=== PATIENT | male | born 1930 | race Caucasian/White ===

== ENCOUNTER 2018-03-22 08:33 | Outpatient (CLI) | payer MEDICARE, BC ==
[2018-03-22 10:30] LABS: Hemoglobin 14.9 g/dL (14.0-18.0); Mean Corpuscular HGB CONC 31.7 g/dL (32.0-36.0); Mean Corpuscular Hemoglobin 29.6 pg (27.0-31.0); Mean Corpuscular Volume 93.3 fL (78.0-98.0); Mean Platelet Volume 9.2 fL (7.4-10.4); Platelet Count 198 thou/uL (130-400); RBC Distribution Width 14.6 % (11.5-14.5); Red Blood Cell (RBC) Count 5.03 mill/uL (4.70-6.10); White Blood Cell (WBC) Count 6.2 thou/uL (4.8-10.8)
[2018-03-22 10:32] LABS: Bilirubin Negative (Negative); Blood, Urine Negative (Negative); Clarity CLEAR (Clear); Glucose, Urine (Dipstick) Negative (Negative); Leukocyte Trace (Negative); Nitrite Negative (Negative); Protein, Urine (Dipstick) Negative (Neg-Trace); Specific Gravity, Urine 1.008 (1.002-1.036); Urobilinogen 0.2 mg/dL (0.2-1.0); pH, Urine 5.5 (5.0-9.0)
[2018-03-22 10:36] LABS: INR-International Normal Ratio 2.2; PTT 43.1 SEC (22.9-36.1); Prothrombin Time 24.8 SEC (12.0-14.7)
[2018-03-22 10:41] LABS: Bacteria/HPF None Seen HPF (None Seen); Hyaline Casts/LPF 0-3 HYALINE CAST LPF (0-3 Hyaline); RBC/HPF 0-3 HPF (0-3); Squamous Epithelial None Seen HPF (0-3); WBC/HPF 0-3 HPF (0-3)
[2018-03-22 10:53] LABS: Anion Gap 12 mmol/L (10-20); BUN (Urea Nitrogen) 28 mg/dL (8.4-25.7); Calc. Creatinine Clearance 0 mL/min (70-130); Calcium 9.5 mg/dL (7.8-10.44); Carbon Dioxide 26 mmol/L (23-31); Chloride 103 mmol/L (98-107); Estimated GFR-MDRD 54; Glucose 182 mg/dL (83-110); Potassium 4.3 mmol/L (3.5-5.1); Sodium 137 mmol/L (136-145)
== END 2018-03-22 08:34 | disposition home or self-care (01) ==
LOC: LABBT 08:33
PROVIDERS: ATTEND Urology
DX: Z01.818 Encounter for other preprocedural examination (principal); N39.41 Urge incontinence
CPT/HCPCS: 87077; 87086; 87186; 93005; 93010

== ENCOUNTER 2018-03-29 05:56 | Day surgery (SDC) | payer MEDICARE, BC ==
[2018-03-22 08:57] VITALS: BMI 24.4
[2018-03-29 06:53] LABS: INR-International Normal Ratio 1.1; PTT 32.9 SEC (22.9-36.1); Prothrombin Time 14.1 SEC (12.0-14.7)
[2018-03-29] MEDS ORDERED: Fentanyl 100 MCG/2 ML VIAL ONE (06:58)
[2018-03-29] MEDS ORDERED: Bupivacaine 0.25% HCL 30 ML VIAL ONE (06:59)
[2018-03-29] MEDS ORDERED: Neomycin-Polymyxin 1 ML AMP ONE (06:59)
[2018-03-29] MEDS ORDERED: CEFAZOLIN/Water 2 GM/20 ML SYRINGE ONE (07:38)
[2018-03-29] MEDS ORDERED: Bacitracin Zinc Ointment 30 gm TUBE ONE (08:21)
[2018-03-29] MEDS ORDERED: Succinylcholine Chloride 20 MG/ML 10 ml SYRINGE FS ONE (09:32)
[2018-03-29] MEDS ORDERED: PROPOFOL 200 MG/20 ML VIAL ONE (09:32)
[2018-03-29] MEDS ORDERED: Lidocaine 1% PF 5 ML VIAL ONE (09:32)
[2018-03-29] MEDS ORDERED: Dexamethasone 20 MG/5 ML VIAL ONE (09:32)
[2018-03-29] MEDS ORDERED: Ondansetron HCl/PF 4 MG/2 ML Vial ONE (09:32)
[2018-03-29] MEDS ORDERED: PHENYLEPHRINE-NS 100 MCG/ML 10 ML SYRINGE ONE (09:32)
--- NOTE | 2018-03-29 11:10 | OP ---
DATE OF PROCEDURE: 03/29/2018 SERVICE: Urology. SURGEON: Shay Ellison M.D. PREOPERATIVE DIAGNOSIS: Urge urinary incontinence. POSTOPERATIVE DIAGNOSIS: Urge urinary incontinence. PROCEDURE PERFORMED: InterStim stage 1. INDICATIONS FOR PROCEDURE: Mr. Schreiber is an 87-year-old white male who has severe overactive bladder with urge incontinence. He has tried Myrbetriq as well as antimuscarinics without good control of h is symptoms. He underwent Botox which controlled his overactive bladder very well, but he could not urinate properly afterwards which suggested that he had a significant under activity of his bladder. This was demonstrated on urodynamics. As such, we have elected to go for an InterStim which should correct underactive bladder and overactive bladder at the same time. Risks and benefits have been di scussed and he has agreed to proceed forward. DESCRIPTION OF PROCEDURE: After identification of arm and verification of consent, the patient was b rought back to the operating room where he underwent general anesthesia with endotracheal intubation. He was then placed in the prone position, prepped and draped in usual sterile fashion. After appro priate timeout, a spot fluoro image was taken of the sacrum. The spot of the S3 sacral nerve foramen were identified. The finder needle was used to isolate the S3 nerve roots on both sides. We had in itially better responses on the left. Therefore, the left side was initially selected. The stylet w as placed through the finder needle and the finder needle was then removed. A small incision was mad e with an 11 blade to allow for the dilation trocar to be placed over the stylet into the sacrum with confirmed placement on fluoroscopy. The stylet was removed and the quadripolar lead advanced throug h. Despite multiple attempts of attempting to reposition, the quadripolar lead within the dilator tr ocar, good responses could not be obtained and eventually we aborted this side and favored the other side. Again, the finder needles were used to find the S3 nerve root and once identified, the stylet was placed through the finder needle and the finder needle removed. The dilation trocar was then eric adwoa after a small incision was made with an 11 blade around the stylet and advanced into its correct position using fluoroscopy. The stylet was removed and the quadripolar lead was advanced on this lola e. After multiple attempts with similar difficulty, it was felt that his sacral nerve foramen were l ikely stenotic and with osteophytes resulting in difficulty in advancing the quadripolar lead, the be st responses we could get on this side was two leads #2 and #3 with excellent anal ralph and toe cu rl without any response on leads 0 and 1. Realizing this is probably the best response that he could get with good responses on leads II and III, we went ahead and left the lead in place and backed out the dilation trocar. The tunneler was then used to go adjacent from the quadripolar lead to an inci sunny that was made on the contralateral upper buttocks which were made with a 15 blade and Bovie elec trocautery to create a small pouch. The quadripolar lead was tunneled through the trocar site into t he pouch. The connection was made to the boot and temporary connector wire which was then tunneled b ack to the opposite side and externalized to the temporary IPG stimulator. The connection was made u sing a torque-limiting screwdriver and the boot secured in place with 0 silk ties. This was then eric adwoa into the pouch and this irrigated with antibiotic irrigation. The skin was closed with interrupt ed 2-0 Vicryls taking care not to injure the lead and the skin closed with a 4-0 Monocryl with Dermab ond applied. A small U stitch was placed in the small incision site over the quadripolar lead. Derm abond was applied to this as well as the previous puncture sites. The connection of the temporary wi re to the temporary IPG was then made and the connector secured underneath gauze and an Op-Site. Onc e the Dermabond was dried, the patient was flipped back over extubated and taken to PACU for recovery in stable condition. COMPLICATIONS: None. ESTIMATED BLOOD LOSS: 10 mL. RETAINED TUBES AND DRAINS: None. Implanted device is the InterStim stage I with a trial wire and quadripolar lead. DISPOSITION: The patient will be discharged home for a trial of 1 week with his InterStim. If he cassidy s good results, we will implant a permanent IPG in the next phase. Otherwise we will explain the ent faye device if he has poor response.
== END 2018-03-29 12:20 | disposition home or self-care (01) ==
LOC: SDC 05:56
PROVIDERS: ATTEND Urology
PROC: 01HY3MZ Insertion of Neurostimulator Lead into Peripheral Nerve, Percutaneous Approach (ICD-10-PCS; principal; 2018-03-29)
DX: N39.41 Urge incontinence (principal); N32.81 Overactive bladder; M25.78 Osteophyte, vertebrae; E78.5 Hyperlipidemia, unspecified; E11.9 Type 2 diabetes mellitus without complications; I50.9 Heart failure, unspecified; E07.9 Disorder of thyroid, unspecified; Z87.891 Personal history of nicotine dependence; Z79.01 Long term (current) use of anticoagulants; Z79.82 Long term (current) use of aspirin; Z79.83 Long term (current) use of bisphosphonates; Z79.84 Long term (current) use of oral hypoglycemic drugs; Z79.899 Other long term (current) drug therapy; Z95.810 Presence of automatic (implantable) cardiac defibrillator
CPT/HCPCS: 64561; 76001; 85610; 85730; C1778; 36415; J1100; J2001; J2405; J2704; J3010; S0020

== ENCOUNTER → 2018-04-05 | Day surgery (SDC) | payer MEDICARE, BC ==
[2018-04-04 11:57] VITALS: BMI 36.9
[~2018-04-05] MED LIST: Bupivacaine/Epinephrine 0.25% 30 ML VIAL ONE; CEFAZOLIN/Water 2 GM/20 ML SYRINGE ONE; Fentanyl 100 MCG/2 ML VIAL ONE; Neomycin-Polymyxin 1 ML AMP ONE; Sodium Chloride 0.9% 10 ML ONE
--- NOTE | 2018-04-05 10:31 | OP ---
DATE OF SURGERY: 04/05/2018 by Shay Ellison M.D. PREOPERATIVE DIAGNOSIS: Urge incontinence. POSTOPERATIVE DIAGNOSIS: Urge incontinence. PROCEDURE PERFORMED: InterStim phase II IPG implantation. INDICATIONS FOR PROCEDURE: Mr. Schreiber is an 87-year-old white male with severe urge incontinence janee t has been refractory to all other methods of treatment. We had performed InterStim phase I approxim ately 1 week ago and he had a very good response with over 50% improvement. He states he is hardly l eaking at all and his frequency and urgency have cut down significantly. As such, he has agreed to p roceed forward with phase II rather than removal of his InterStim leads. All risks and benefits have been discussed and he has agreed to proceed forward. DESCRIPTION OF PROCEDURE: After identification of arm and verification of consent, the patient was b rought back to the operating room, given general anesthesia with endotracheal intubation. He was eric adwoa in the prone position and prepped and draped in usual sterile fashion. After appropriate timeout , 0.25% Marcaine plain was used to infiltrate just around the incision. An Ioban was placed over the patient's incision line and an incision made over the preexisting incision with a 10 blade. The pre vious suture was cut out and removed and once the previous pouch was identified by fluid release, the tissues were elevated to avoid damage to the preexisting wires. The incision was extended using the 10 blade to the apices of both sides of the incision. The connector was then brought up out through the incision and the pouch copiously irrigated with antibiotic irrigation. The silk ties were cut u sing a 15 blade and were discarded. The boot was removed and the torque-limiting screwdriver used to unscrew the connector off of the quadripolar lead. The temporary connector was then cut and the quispe t and connector discarded. The external lead was then pulled through by the circulating nurse outsid e the patient. This incision had to be extended slightly to allow for implantation of the IPG. The IPG was brought in and the quadripolar lead wiped off and the connection made using the torque-limiti ng screwdriver. The IPG was implanted into the pouch after putting on a rifampin antibiotic coated p ouch around the IPG, which was then placed underneath the patient's skin with the IPG inside. It was seated well but the pouch had to be extended superiorly slightly in order to allow for a flat seatin g of the device. Happy that it was seated well. The pouch was reirrigated with antibiotic irrigatio n and then the fluid all drained out. Impedance testing was performed that demonstrated no damage wi th good connection of all leads and good functioning of the device. The incision was then closed in two layers with the dermis and subcutaneous closed with interrupted 2-0 Vicryls and the skin closed w ith a 4-0 running subcuticular stitch. Dermabond was applied and the patient was then awakened, retu rned back to the supine position and taken to PACU for recovery in stable condition. The Dermabond w as dried before the patient was turned over. COMPLICATIONS: None. ESTIMATED BLOOD LOSS: Minimal. RETAINED TUBES AND DRAINS: None. IMPLANT DEVICES: The InterStim IPG with the preexisting quadripolar lead in place. SPECIMENS: None. DISPOSITION: The patient will be discharged home and follow up in approximately 1-2 weeks for device settings and calibration as well as a postop check.
== END ==
LOC: SDC 06:00
PROVIDERS: ATTEND Urology
PROC: 0JH80MZ Insertion of Stimulator Generator into Abdomen Subcutaneous Tissue and Fascia, Open Approach (ICD-10-PCS; principal; 2018-04-05)
PROC: 0TH Urinary System, Insertion (ICD-10-PCS; 2018-04-05)
DX: N39.41 Urge incontinence (principal); I25.10 Atherosclerotic heart disease of native coronary artery without angina pectoris; I48.91 Unspecified atrial fibrillation; I10 Essential (primary) hypertension; Z79.82 Long term (current) use of aspirin; Z79.83 Long term (current) use of bisphosphonates; Z79.84 Long term (current) use of oral hypoglycemic drugs; Z79.899 Other long term (current) drug therapy; Z95.0 Presence of cardiac pacemaker; Z79.01 Long term (current) use of anticoagulants
CPT/HCPCS: 64590; 96374; C1767; C1787; J3010; J3490

== ENCOUNTER 2018-12-17 18:14 | Emergency (ER) | payer MEDICARE, BC | END 2018-12-17 18:22 | disposition left against medical advice (07) | LOC: ERS 18:14 | DX: Z53.21 Procedure and treatment not carried out due to patient leaving prior to being seen by health care provider (principal) ==

== ENCOUNTER 2018-12-17 18:44 | Inpatient (IN) | payer MEDICARE, BC ==
[2018-12-17] MEDS ORDERED: Piperacillin/Tazobactam 3.375 GM VIAL ONE (19:42)
[2018-12-17] MEDS ORDERED: Sodium Chloride 0.9% 100 ML ONE (19:43)
[2018-12-17 20:04] LABS: #Basophils 0.1 thou/uL (0.0-0.2); #Eosinphils 0.2 thou/uL (0.0-0.7); #Lymphocytes 1.2 thou/uL (1.20-3.40); #Monocytes 0.6 thou/uL (0.11-0.59); %Eosinophils 3.6 % (0.0-10.0); %Lymphocytes 19.8 % (21.0-51.0); %Monocytes 9.2 % (0.0-10.0); %Neutrophils 66.4 % (42.0-75.0); Hemoglobin 13.8 g/dL (14.0-18.0); Mean Corpuscular HGB CONC 33.5 g/dL (32.0-36.0); Mean Corpuscular Hemoglobin 28.9 pg (27.0-31.0); Mean Corpuscular Volume 86.4 fL (78.0-98.0); Mean Platelet Volume 8.7 fL (7.4-10.4); Platelet Count 194 thou/uL (130-400); Red Blood Cell (RBC) Count 4.77 mill/uL (4.70-6.10)
[2018-12-17 20:09] LABS: INR-International Normal Ratio 2.4; PTT 50.1 SEC (22.9-36.1); Prothrombin Time 25.7 SEC (12.0-14.7)
[2018-12-17 20:16] LABS: Anion Gap 14 mmol/L (10-20); BUN (Urea Nitrogen) 19 mg/dL (8.4-25.7); Calc. Creatinine Clearance 0 mL/min (70-130); Calcium 9.6 mg/dL (7.8-10.44); Carbon Dioxide 26 mmol/L (23-31); Chloride 102 mmol/L (98-107); Estimated GFR-MDRD 55; Glucose 185 mg/dL (83-110); Potassium 4.2 mmol/L (3.5-5.1); Sodium 138 mmol/L (136-145)
--- NOTE | 2018-12-17 20:46 | RAD ---
LEFT FOOT THREE VIEWS: HISTORY: Worsening pain with cellulitis in the foot. COMPARISON: None. FINDINGS: Three views of the left foot show absence of portions of the distal phalanges of the first and second toes. Overlying soft tissue swelling is seen. No fracture is seen. IMPRESSION: Absence of the distal phalanges of the first and second toes, concerning for osteomyelitis. POS: C
--- NOTE | 2018-12-17 21:13 | ULT ---
LEFT LOWER EXTREMITY VENOUS ULTRASOUND: HISTORY: Swelling, pain, and redness. TECHNIQUE: Multiplanar young-scale and color Doppler images were obtained in a left lower extremity venous ultras ound. Spectral analysis of the Doppler waveforms was performed. FINDINGS: The left common femoral vein, profunda femoral vein, superficial femoral vein, and popliteal vein are normal in appearance without visible thrombus. These vessels demonstrate normal compression, flow, and augmentation. The posterior tibial vein and greater saphenous vein are also patent. IMPRESSION: No evidence of deep venous thrombosis. POS: C
[2018-12-17 21:31] LABS: Bilirubin Negative (Negative); Blood, Urine Trace (Negative); Clarity Slightly Cloudy (Clear); Glucose, Urine (Dipstick) Negative (Negative); Leukocyte Negative (Negative); Nitrite Negative (Negative); Protein, Urine (Dipstick) 30 mg/dL (Neg-Trace); Urobilinogen 0.2 mg/dL (Less than 2)
[2018-12-17 21:37] LABS: Bacteria/HPF None Seen HPF (None Seen); RBC/HPF 0-3 HPF (0-3); Squamous Epithelial 0-3 HPF (0-3); WBC/HPF None Seen HPF (0-3)
[2018-12-18] MEDS ORDERED: Piperacillin/Tazobactam 3.375 GM VIAL ONE ×2 (02:24→10:46)
[2018-12-18] MEDS ORDERED: Sodium Chloride 0.9% 100 ML ONE ×2 (02:24→10:46)
[2018-12-18] MEDS ORDERED: EPINEPHrine 1 MG/ML AMP ONE (02:31)
[2018-12-18 16:34] VITALS: BMI 23.6
[2018-12-18] MEDS ORDERED: Acetaminophen 325 MG TAB PO PRN (17:26)
[2018-12-18] MEDS ORDERED: Dextrose 50% Abboject 50 ML SYRINGE SLOW IVP PRN (17:38)
[2018-12-18] MEDS ORDERED: HumaLOG 300 UNITS/3 ML VIAL SC PRN ×2 (17:38)
[2018-12-18] MEDS ORDERED: Dextrose 5% in Water 1,000 ML IV PRN (17:38)
[2018-12-18] MEDS: Piperacillin/Tazobactam 3.375 GM in Sodium Chloride 0.9% 100 ML IVPB SCH (20:30)
[2018-12-18] MEDS: Trospium 20 MG TAB PO SCH (20:30)
[2018-12-18] MEDS: Simvastatin 20 MG TAB PO SCH (20:30)
[2018-12-18] MEDS: traZODone HCl 50 MG TAB PO SCH (20:30)
[2018-12-18] MEDS ORDERED: Vancomycin HCl 1 GM in Premix Bag 1 BAG IVPB SCH (21:00)
[2018-12-19] MEDS: Piperacillin/Tazobactam 3.375 GM in Sodium Chloride 0.9% 100 ML IVPB SCH ×4 (02:14→20:06)
[2018-12-19 06:49] LABS: #Eosinphils 0.3 thou/uL (0.0-0.7); #Lymphocytes 0.9 thou/uL (1.20-3.40); #Monocytes 0.7 thou/uL (0.11-0.59); %Basophils 0.2 % (0.0-1.0); %Eosinophils 3.9 % (0.0-10.0); %Lymphocytes 13.3 % (21.0-51.0); %Monocytes 9.6 % (0.0-10.0); Hemoglobin 14.6 g/dL (14.0-18.0); Mean Corpuscular HGB CONC 31.7 g/dL (32.0-36.0); Mean Corpuscular Hemoglobin 28.8 pg (27.0-31.0); Mean Corpuscular Volume 90.6 fL (78.0-98.0); Mean Platelet Volume 8.6 fL (7.4-10.4); Platelet Count 219 thou/uL (130-400); RBC Distribution Width 14.7 % (11.5-14.5); Red Blood Cell (RBC) Count 5.09 mill/uL (4.70-6.10); White Blood Cell (WBC) Count 6.9 thou/uL (4.8-10.8)
[2018-12-19 06:59] LABS: INR-International Normal Ratio 1.8
[2018-12-19 07:15] LABS: Anion Gap 12 mmol/L (10-20); BUN (Urea Nitrogen) 19 mg/dL (8.4-25.7); Calc. Creatinine Clearance 47 mL/min (70-130); Calcium 9.4 mg/dL (7.8-10.44); Carbon Dioxide 27 mmol/L (23-31); Chloride 102 mmol/L (98-107); Estimated GFR-MDRD 54; Glucose 155 mg/dL (83-110); Potassium 4.4 mmol/L (3.5-5.1); Sodium 137 mmol/L (136-145)
[2018-12-19 07:34] LABS: Free T4 (Free Thyroxine) 0.76 ng/dL (0.70-1.48); Thyroid Stimulating Hormone 3.1231 uIU/mL (0.35-4.94)
--- NOTE | 2018-12-19 07:42 | HP ---
PRIMARY CARE PROVIDER: Dr. Ngo at [facility]. CHIEF COMPLAINT: "Bad toe." HISTORY OF PRESENT ILLNESS: This is an 88-year-old male with history of heart failure (suspect systolic based on the patient's medications and AICD); atrial fibrillation, on full anticoagulation; type 2 diabetes; hyperthyroidism; hypertension; dyslipidemia, who presents to the emergency room at the instruction of his chair springer for worsening infection. The patient reports for the past few months , his left 2nd toe has been swollen and red and he has been on 3 courses of antibiotics. He notes worsening of the swelling and redness, talked with his chair springer office, and was instructed to go to the emergency room. In discussion with Dr. Medrano/[employer], the patient was directed due to the concern of spread of osteomyelitis of the 2nd toe. She was planning initially an outpatient amputation, however, given the worsening, desires to complete this as an inpatient. He was sent to the emergency room yesterday for IV antibiotics and a plan for surgery. The patient reports that the swelling of his left ankle and the redness has extended. He denies any fevers or chills. Denies any nausea or vomiting. Denies any chest pain or difficulty breathing. He also denies any neuropathy symptoms. Patient was treated in the [facility] Emergency Room and received Vancomycin 1 gram x 2 doses, Zosyn 3.375 grams IV x 3 doses and transferred here. ALLERGIES: NONE. PAST MEDICAL HISTORY: 1. Heart failure, suspect systolic as the patient has an AICD. 2. Atrial fibrillation, on full anticoagulation with warfarin. 3. Type 2 diabetes. 4. Hyperthyroidism. 5. Hypertension. 6. Dyslipidemia. 7. Overactive bladder. PAST SURGICAL HISTORY: 1. Cataract removal, OU. 2. AICD. 3. Skin cancers on his face and nose. SOCIAL HISTORY: The patient lives alone in [facility], he has been a since 2014, denies alcohol or tobacco. His surrogate decision makers are his daughter Flory or his sister Selma and he is a full code. FAMILY HISTORY: Significant for cancer of the lung and colon. REVIEW OF SYSTEMS: Positive for knee pain associated with going up steps, weakness in his lower extremities. Negative for chest pain, shortness of breath, nausea, vomiting, abdominal pain, falls, fevers, or chills. All remaining review of systems are reviewed and negative. MEDICATIONS: Reconciled with the list provided. 1. Spironolactone 12.5 mg daily. 2. Metformin 1000 mg tablets one-half tablet b.i.d. 3. Trospium 20 mg b.i.d. 4. Metoprolol succinate 50 mg daily. 5. Sertraline 100 mg daily. 6. Methimazole 5 mg tablet one-half tablet on Monday, Monday, Monday, and one tablet on Monday, Monday, Monday, . 7. Entresto 24/26 mg one tablet b.i.d. 8. Simvastatin 20 mg daily. 9. Vitamin D 1000 units daily. 10. Iron 28 mg daily. 11. Warfarin 5 mg tablets [id number] tablet on Monday, Monday, , Monday, and one tablet on Monday, Monday, and Monday. 12. Trazodone 50 mg at bedtime. 13. Myrbetriq 50 mg at bedtime. PHYSICAL EXAMINATION: VITAL SIGNS: Blood pressure 173/88, temperature 97.7, pulse 74, respirations 16 , and saturations 97% on room air. GENERAL: Awake, alert, responsive, in no apparent distress. Able to speak in full sentences. HEENT: His pupils are equal and round. No scleral icterus. Oral mucosa is pink and moist. NECK: Supple, nontender. LYMPHATICS: No palpable cervical or supraclavicular lymphadenopathy. LUNGS: Clear to auscultation bilateral. HEART: Normal S1 and S2. Regular rate and rhythm. 2/6 Systolic ejection murmur. ABDOMEN: Soft with present bowel sounds, nontender, nondistended. EXTREMITIES: There is no clubbing or cyanosis. SKIN: He has erythema of his left 2nd digit, erythema of the anterior aspect of his left foot, as well as 1+ pitting edema and erythema of his distal left lower extremity. Skin as above. Also area of crusting with some mild surrounding erythema on his right lower extremity anteriorly. NEUROLOGIC: No gross deficits. PSYCHIATRIC: He is euthymic appearing and alert and oriented. LABORATORY DATA: Reviewed. CBC: 6, 13.8, 41.2, 194. INR 2.4. Chemistry; 138, 4.2, 102, 26, 19, 1.25, 185. Lactic acid 1.1. Calcium is 9.6. Urinalysis; present protein, trace blood, but 0 to 3 red blood cells. Otherwise negative. Blood cultures and urine culture, no growth so far. These are obtained last night. Vascular ultrasound is negative for DVT of his left lower extremity. Foot x-ray left, absence of the distal phalanges of the 1st and 2nd toes concerning for osteomyelitis. IMPRESSION: 1. 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 2. Heart failure, suspect systolic, unknown severity of this, appears compensated. 3. Atrial fibrillation, on full anticoagulation. 4. Type 2 diabetes, appears controlled. 5. Hyperthyroidism. 6. Overactive bladder. 7. Hypertension, unknown control. PLAN: 1. Admission to the hospital. 2. Continuing the Zosyn and vancomycin that was initiated in the emergency room at [facility]. I will ask Pharmacy to dose the vancomycin. 3. Continuing his home medications, which include beta-divya, Entresto, statin. 4. We will hold his warfarin for now, monitor daily and resume when considered safer per Podiatry and Cardiology. Pharmacy to dose warfarin when it is resumed. 5. Podiatry consult, I discussed this plan with Dr. Medrano by phone tonight, she will see him tomorrow and anticipates a partial amputation in 2 days. 6. Cardiology consultation for preoperative evaluation and ecg ordered. 7. Continuing his home mood and bladder medications as well as methimazole. We will check a TSH and free T4 here. 8. We will check a vascular ultrasound to evaluate the blood supply to his left lower extremity. 9. ID consultation given the complicated infection for this patient. 10. Hold metformin in case contrast studies are needed, and use sliding scale insulin with meals. 11. DVT prophylaxis. The patient is fully anticoagulated. 12. GI prophylaxis not indicated. 13. Code status is full and surrogate decision maker is as above. Reviewed the plan of care with the patient and his daughter. No questions or further needs at end of evaluation. The patient is at high risk given age comorbidities and current presentation. Job ID: [id number] [facility]
[2018-12-19] MEDS: Spironolactone 25 MG TAB PO SCH (09:22)
[2018-12-19] MEDS: Trospium 20 MG TAB PO SCH ×2 (09:23→20:06)
[2018-12-19] MEDS: Vancomycin HCl 1 GM in Premix Bag 1 BAG IVPB SCH (09:26)
[2018-12-19] MEDS: Methimazole 5 MG TAB PO SCH (09:26)
--- NOTE | 2018-12-19 10:36 | ULT ---
ULTRASOUND DOPPLER DUPLEX ARTERIAL LEFT LOWER EXTREMITY: DATE: 12/19/2018. HISTORY: An 88-year-old male with atherosclerotic disease and decreased blood flow to the left lower extremity . TECHNIQUE: Pace scale, color flow, and spectral analysis, of major arteries of left lower extremity. FINDINGS: There is moderate and severe calcified plaque throughout all interrogated arteries. These are multif ocal in the arteries from the groin to the knee, and diffuse in arteries distal to the knee. There is soft tissue edema in the leg distal to the knee. The highest peak systolic velocities in cm/s followed pulsed Doppler waveforms: Common femoral: 70, biphasic. Profunda femoral: 35, biphasic. Superficial femoral, proximal: 95, triphasic. Superficial femoral, mid: 80, triphasic. Superficial femoral, distal: 185, triphasic. Popliteal: 80, monophasic. Anterior tibial, proximal: 30, monophasic. Anterior tibia, distal: no flow. Posterior tibial: variable from 12 to 60, monophasic. Dorsalis pedis: 35, monophasic. IMPRESSION: 1. 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 2. 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 POS: [facility]
--- NOTE | 2018-12-19 15:54 | PRG ---
DATE OF SERVICE: 12/19/2018 SUBJECTIVE: An 88-year-old male with diabetes mellitus type 2, hypertension, and congestive heart failure, presented to the emergency room with left second toe erythema and swelling despite completing 3 courses of oral antibiotics. His workup was consistent with findings consistent with osteomyelitis of the distal phalanges of the first and the second toe. He denies significant pain. No fevers or chills reported. REVIEW OF SYSTEMS: All other review of systems were reviewed and were found negative. OBJECTIVE: VITAL SIGNS: Temperature 97.8, pulse 69, respirations of 18, blood pressure 159/78, and O2 saturation 98% on room air. GENERAL: An 88-year-old male in no apparent distress. LUNGS: Clear to auscultation bilaterally. No wheezing, rales, or rhonchi. HEART: S1 and S2 present. Regular rate and rhythm. No rubs or gallops. ABDOMEN: Soft. Bowel sounds present. NEUROLOGIC: Grossly nonfocal. SKIN: There is swelling and erythema over the second left digit. There is also 1+ edema in the left foot. PSYCHIATRY: Alert, awake, and oriented x3. Normal affect. LABORATORY FINDINGS: WBC 6.9, hemoglobin 14.6, hematocrit 46.1, and platelets 219. INR 1.8 from 2.4. Chemistry showed sodium 137, potassium 4.4, chloride 102, bicarb 27, BUN 19, and creatinine 1.27. TSH was 3.12. Blood cultures negative. Urine culture essentially negative. Lower extremity Doppler of the left lower extremity showed severe atherosclerosis of all the arteries of the left lower extremity. X-ray of the left foot by my review showed findings concerning for osteomyelitis. CURRENT MEDICATIONS: Reviewed. The patient is on; 1. Zosyn .. 2. Vancomycin. 3. Methimazole. 4. Metoprolol. 5. Entresto. 6. Zoloft. 7. Zocor. 8. Aldactone. IMPRESSION: 1. Osteomyelitis with cellulitis of the left second toe. The patient failed outpatient therapy. 2. Peripheral vascular disease based on the arterial Doppler. 3. Hypertension. 4. Congestive heart failure. 5. Paroxysmal atrial fibrillation. Anticoagulation is currently on hold for surgical intervention. 6. Diabetes mellitus, type 2. 7. Hyperthyroidism. 8. Hypertension. 9. Overactive bladder. 10. Chronic kidney disease, stage 3. 11. Chronic anticoagulation. PLAN: We will continue IV antibiotics. Cardiovascular has been consented due to peripheral vascular disease. The patient is on over schedule for surgical intervention by Podiatry (per the patient's report, around 12:30 p.m.). Infectious Disease has been consulted. We will monitor vancomycin level. Add walking program. We will start gentle IV hydration tonight. Plan of care was discussed with the patient and the family at the bedside. They stated understanding. Job ID: [id number] [facility]
--- NOTE | 2018-12-19 16:58 | CON ---
DATE OF CONSULTATION: 12/19/2018 REASON FOR CONSULTATION: Left second toe osteomyelitis. HISTORY OF PRESENT ILLNESS: An 88-year-old gentleman, history of type 2 diabetes mellitus; ischemic heart disease with AICD; atrial fibrillation, on Coumadin; who has chronic swelling and ulceration at the tip of the second left toe. The patient had outpatient oral antimicrobial therapy and this did not improve the status of the toe, the patient was seen by Dr. Medrano and scheduled for surgery. No headaches. No change in visual symptoms, sore throat, odynophagia, or dysphagia. No cough or sputum production or chest pain. No abdominal pain or diarrhea. No genitourinary symptoms. No change in neurological status. PAST MEDICAL HISTORY: Type 2 diabetes; ischemic cardiomyopathy with AICD; atrial fibrillation, on warfarin; hyperthyroidism; hypertension; and dyslipidemia. PAST SURGICAL HISTORY: Cataract surgery, AICD placement, skin cancer with removal. SOCIAL HISTORY: . Lives in [place]. Quit smoking 25 years ago. FAMILY HISTORY: Lung and colon cancer. CURRENT MEDICATIONS: 1. P.r.n. medications. 2. Insulin. 3. Methimazole. 4. Metoprolol. 5. Mirabegron. 6. Zosyn. 7. Vancomycin. PHYSICAL EXAMINATION: VITAL SIGNS: T-max 98.4, blood pressure 160/90, pulse 70, respirations 20, and O2 saturation 97. SKIN: Shows the left second toe swelling, extending from the tip all the way to the base of the proximal phalanx. Not much erythema. At the tip of the second toe, there is a small ulcer with callus formation. I could not detect any exposed bone at this time. The patient has evidence of stasis dermatitis in the lower extremities. LYMPHS: No lymphadenopathy. HEENT: Ocular movements conjugate. Oral cavity is not remarkable. NECK: Supple. No jugular venous distention. No carotid bruits. No thyromegaly. LUNGS: Symmetric, clear breath sounds. HEART: S1 and S2. Regular rate. No S3 or S4. ABDOMEN: Soft. Not distended or tender. No ascites. No bladder distention. EXTREMITIES: Pulses are 2+ in popliteals, 1+ in right dorsalis pedis. I could not palpate the left dorsalis pedis or posterior tibialis. Cap refill is delayed on the left side. Strength in upper and lower extremities is 5/5. Cognitive function appears to be intact. LABORATORY AND DIAGNOSTIC DATA: White cell count 6.0, hemoglobin 13.8, platelets 194 with 66% neutrophils. INR 2.4. Creatinine 1.27 with GFR 24. His baseline creatinine from 2 years ago was 0.98. Urinalysis was fairly normal except for 30 protein. Two sets of blood culture no growth. Foot x-ray with absence of distal phalanges of first and second toes. No deep vein thrombosis on arterial duplex ultrasound with severe atherosclerosis of left lower extremity. ASSESSMENT: 1. Type 2 diabetes. 2. Ischemic cardiomyopathy. 3. Peripheral vascular disease, particularly left lower extremity. 4. Osteomyelitis of the second toe, left foot. DISCUSSION: The patient will have partial amputation of the distal phalanx, left second toe, and then after that, await on followup culture results of the specimen and then hopefully oral antimicrobial therapy for a few days, maybe a week or two. In view of the vascular disease, we will have vascular surgeon take a look at the patient's status and see if he requires a vascular study. Job ID: [id number]
--- NOTE | 2018-12-19 18:46 | CON ---
DATE OF CONSULTATION: 12/19/2018 REASON FOR CONSULTATION: Preoperative evaluation. HISTORY OF PRESENT ILLNESS: Mr. Schreiber is a pleasant 88-year-old white gentleman, very well known to myself, who comes to the hospital for an infected toe. He was diagnosed with osteomyelitis of the toe and is scheduled to have an amputation done tomorrow. I followed up with him for some time now for nonischemic cardiomyopathy. He had an EF at one point about 20% to 25%, this was in the setting of having a heart catheterization that showed only moderate coronary artery disease, this was done in 2014. He presented initially for cardiomyopathy, bradycardia, and atrial fibrillation and underwent pacemaker placement, eventually had to be upgraded to a defibrillator since his LV function had not improved. Since that time, he has been on medical therapy and his LV function was last checked a few months ago and his EF was normal at 55%. He denies any chest pain, tightness, or pressure. No shortness of breath. For some time, when he had an LV dysfunction, he had a very hard time staying euvolemic. However, for the last year to year and a half, since the LV function has been normal, he has been staying out of the hospital not requiring any extra Lasix and his fluid status is much easier to control. He comes in today with an infected foot. Ultrasound of the leg showed severe PVD throughout his whole left lower extremity and is scheduled to have a vascular study done by Dr. Nolen on Monday and scheduled to have amputation tomorrow for the infection. He denies any anginal symptoms. AICD was interrogated today and is without issues. PAST MEDICAL HISTORY: 1. History of nonischemic cardiomyopathy with a normalized EF since. 2. Status post AICD placement. 3. Paroxysmal atrial fibrillation. 4. Chronic anticoagulation on Coumadin. 5. Type 2 diabetes. 6. Hyperthyroidism. 7. Hypertension. 8. Hyperlipidemia. 9. Overactive bladder. PAST SURGICAL HISTORY: 1. Cataract removal. 2. AICD placement. 3. Left heart catheterization in 2014. 4. Removal of skin cancers. SOCIAL HISTORY: since 2013. Lives alone. No alcohol, tobacco, or drugs. FAMILY HISTORY: No early coronary artery disease. REVIEW OF SYSTEMS: A 12-point review of systems was done and was all negative unless stated in the history of present illness. OUTPATIENT MEDICATIONS: Include, 1. Aldactone 12.5 mg a day. 2. Metformin 1000 mg, half tablet b.i.d. 3. . 4. Metoprolol succinate 50 mg daily. 5. Sertraline. 6. Methimazole. 7. Entresto b.i.d. 8. Simvastatin 20 mg a day. 9. Vitamin D. 10. Iron tablets. 11. Warfarin. 12. Trazodone. 13. Myrbetriq. ALLERGIES: NO KNOWN DRUG ALLERGIES. PHYSICAL EXAMINATION: VITAL SIGNS: Temperature 98.0, pulse 69, respiratory rate 18, saturations 96% on room air, and blood pressure 174/82. GENERAL: Awake, alert, oriented x3, in no distress. HEENT: Normocephalic and atraumatic. NECK: Supple. LUNGS: Clear. CARDIOVASCULAR: S1 and S2. No S3 or S4. No murmurs. ABDOMEN: Soft. Positive bowel sounds. EXTREMITIES: 1+ edema. SKIN: Warm and dry. LABORATORY DATA: Laboratory work was reviewed. CBC with a white count of 6, hemoglobin of 13.8, hematocrit of 41, platelet count of 194. Coags, his INR was 2.4 and therapeutic on arrival; however, now it is at 1.8. Chemistry is unremarkable. Normal free T4 and TSH. UA was unremarkable as well. IMAGING STUDIES: Lower extremity ultrasound was reviewed. ASSESSMENT: 1. Preoperative evaluation. 2. Osteomyelitis of the left foot. 3. Severe peripheral vascular disease of the left foot. PLAN: 1. Intermediate risk for intermediate risk procedure. He had moderate disease on heart catheterization back in 2014, but his EF was reduced at that time and has since normalized. He is asymptomatic. He may proceed with surgery tomorrow as planned. He understands about his risk profile being intermediate and he verbalized understanding of this and agrees to proceed. 2. We will follow. Job ID: [id number]
[2018-12-19] MEDS: traZODone HCl 50 MG TAB PO SCH (20:06)
[2018-12-19] MEDS: Simvastatin 20 MG TAB PO SCH (20:06)
[2018-12-19] MEDS ORDERED: hydrALAZINE 20 MG/ML VIAL SLOW IVP PRN (20:29)
[2018-12-19] MEDS ORDERED: Sodium Chloride 0.9% 1,000 ML IV SCH (23:55)
[2018-12-20] MEDS: Piperacillin/Tazobactam 3.375 GM in Sodium Chloride 0.9% 100 ML IVPB SCH ×4 (04:05→20:58)
[2018-12-20 06:19] LABS: INR-International Normal Ratio 1.6; Prothrombin Time 19.2 SEC (12.0-14.7)
[2018-12-20] MEDS: Methimazole 5 MG TAB PO SCH (08:49)
[2018-12-20] MEDS: Saccharomyces boulardii 250 MG CAP PO SCH (08:50)
[2018-12-20] MEDS: Spironolactone 25 MG TAB PO SCH (08:50)
[2018-12-20] MEDS: Trospium 20 MG TAB PO SCH ×2 (08:50→20:57)
[2018-12-20 09:43] LABS: Vancomycin, Trough 8.1 ug/mL
[2018-12-20] MEDS ORDERED: Vancomycin HCl 1.5 GM in Sodium Chloride 0.9% 250 ML 300 ML IVPB SCH (11:00)
--- NOTE | 2018-12-20 11:26 | EKG ---
Test Reason : ROUTINE Blood Pressure : / mmHG Vent. Rate : 073 BPM Atrial Rate : 073 BPM P-R Int : 000 ms QRS Dur : 158 ms QT Int : 432 ms P-R-T Axes : 000 -85 081 degrees QTc Int : 475 ms Ventricular-paced rhythm Biventricular pacemaker detected Abnormal ECG Confirmed by ROD ROTHMAN ([id number]) on 12/20/2018 11:25:47 AM Referred By: Confirmed By:ROD ROTHMAN
--- NOTE | 2018-12-20 12:16 | CON ---
DATE OF CONSULTATION: HISTORY OF PRESENT ILLNESS: An 88-year-old gentleman followed by Dr. Medrano and Dr. Ngo. Reason. He relates about a 5-week history of ulceration on the tip of his left 2nd toe, which has been monitored by the executive secretary social welfare. He developed some pain, erythema, and swelling prompting admission to the hospital for cellulitis. The patient's cardiovascular risk factors include longstanding diabetes mellitus, hypertension, and dyslipidemia. ADDITIONAL PAST MEDICAL HISTORY: Includes cardiomyopathy with AICD pacemaker placement. PAST SURGICAL HISTORY: Otherwise includes skin cancers and cataract surgery. SOCIAL HISTORY: The patient has not smoked in many years. He lives alone in [facility], being with his dying of breast cancer and peripheral vascular disease. LABORATORY VALUES: Include a creatinine of 1.27. HOME MEDICATIONS: Include; 1. Metformin 500 b.i.d. 2. Entresto one b.i.d. 3. Warfarin daily. 4. Mirabegron 50 mg at bedtime. 5. Trazodone. 6. Simvastatin 20. 7. Methimazole 2.5 mg as directed. 8. Trospium 20 mg b.i.d. 9. Zoloft 100 mg q.a.m. 10. Toprol-XL 50 a day. 11. Aldactone 12.5 a day. ALLERGIES: NONE KNOWN. PHYSICAL EXAMINATION: VITAL SIGNS: Height 6 feet, weight 174 pounds, heart rate 70 and regular, blood pressure 160/80. NECK: No carotid bruits. LUNGS: Clear to auscultation. CARDIAC: Regular rate and rhythm with a holosystolic murmur in left anterior chest. ABDOMEN: Soft. No aneurysm. No masses. EXTREMITIES: He has palpable femoral and popliteal pulses bilaterally with prominent left popliteal pulse. He has a palpable right dorsalis pedis and no pedal pulses in the left foot by palpation. He has a monophasic left DP and PT signal and perhaps a biphasic peroneal signal. He has resolving cellulitis over the dorsum of his foot with no edema and a 2 to 3 mm ulcer in the tip of the second toe in the area of a callus. LABORATORY DATA: Foot x-rays demonstrate partial absence of the distal phalanx in the 1st and 2nd toes as well as calcification of the pedal vessels. PLAN: Plan at this time is for angiography of the left leg on Monday morning to assess whether there is anything that can be improved upon for his circulation as Doppler signals at this point make it seem less likely that he can heal this wound or the amputation. Job ID: [id number]
[2018-12-20] MEDS: Vancomycin HCl 1 GM in Premix Bag 1 BAG IVPB SCH (12:39)
[2018-12-20] MEDS ORDERED: Fentanyl 100 MCG/2 ML VIAL ONE (12:43)
[2018-12-20] MEDS ORDERED: Bupivacaine PF 0.5% 30 ML VIAL ONE (12:56)
[2018-12-20] MEDS ORDERED: Ketamine 50 MG/ML (10ML VIAL) ONE (13:07)
[2018-12-20] MEDS ORDERED: PROPOFOL 200 MG/20 ML VIAL ONE (13:09)
[2018-12-20] MEDS ORDERED: Ondansetron PF 4 MG/2 ML Vial ONE (13:09)
--- NOTE | 2018-12-20 16:20 | RAD ---
LEFT FOOT TWO VIEWS: HISTORY: Amputation of the second toe. COMPARISON: 12/17/2018 FINDINGS: Two views of the left foot show the patient to be status post interval amputation of the second toe, through the middle phalanx. There is still absence of the tuft of the distal phalanx of the great to e. Mild degenerative changes are seen in the great toe metatarsophalangeal joint. IMPRESSION: 1. Interval amputation of the second toe. 2. Persistent absence of the distal tuft of the distal phalanx of the great toe. POS: [place]
--- NOTE | 2018-12-20 16:57 | PDOC.PN ---
- Subjective Encounter Start Date: 12/20/18 Encounter Start Time: 11:00 Patient seen and examined for Osteomyelitis. No fever/chills. No new complaints. No overnight events - Objective Resuscitation Status - Order Detail: 12/18/18 17:26 Resuscitation Status Routine Resuscitation Status: FULL: Full Resuscitation MAR Reviewed: Yes Vital Signs & Weight: Vital Signs (12 hours) Temp Pulse Resp BP BP Pulse Ox 12/20/18 14:33 97.6 F 78 18 159/71 H 95 12/20/18 11:00 97.8 F 72 16 154/85 H 96 12/20/18 08:54 95 12/20/18 08:00 97.7 F 74 18 163/80 H 95 Weight Weight 174 lb 2 oz I&O: 12/19/18 12/20/18 12/21/18 06:59 06:59 06:59 Intake Total 1120 Balance 1120 Result Diagrams: 12/19/18 06:32 12/19/18 06:32 Additional Labs: Accuchecks 12/20/18 12/19/18 12/19/18 05:13 21:00 17:23 POC Glucose 157 H 172 H 202 H Phys Exam - Physical Examination Constitutional: NAD Respiratory: no wheezing, no rhonchi Cardiovascular: RRR, no rub Gastrointestinal: soft, non-tender, positive bowel sounds Musculoskeletal: no edema wound - looks same Neurological: moves all 4 limbs Dx/Plan - Plan IMPRESSION: 1. Osteomyelitis with cellulitis of the left second toe. (failed outpatient therapy) 2. PVD. 3. Hypertension. 4. Chronic diastolic heart failure. 5. Paroxysmal atrial fibrillation. Anticoagulation on hold. 6. Diabetes mellitus, type 2. 7. Hyperthyroidism. 8. Hypertension. 9. Overactive bladder. 10. Chronic kidney disease, stage 3. 11. Chronic anticoagulation. PLAN: Continue IV antibiotics. Monitor vancomycin level. Gentle IVF Cont sliding scale Warfarin on hold Toe amputation scheduled for today AM labs Review of Systems - Review of Systems Respiratory: negative: Cough, Dry, Shortness of Breath, Hemoptysis, SOB with Excertion, Pleuritic Pain, Sputum, Wheezing Cardiovascular: negative: chest pain, palpitations, orthopnea, paroxysmal nocturnal dyspnea, edema, light headedness, other - Medications/Allergies Allergies/Adverse Reactions: Allergies Allergy/AdvReac Type Severity Reaction Status Date / Time No Known Drug Allergies Allergy Verified 12/18/18 17:11 Medications: Current Medications Acetaminophen (Tylenol) 650 mg PO Q6H PRN PRN Reason: Headache/Fever/Mild Pain (1-3) Aspirin (Ecotrin) 81 mg PO DAILY [facility] Dextrose/Water (Dextrose 50%) 25 gm SLOW IVP PRN PRN PRN Reason: Hypoglycemia Glucagon (Glucagon) 1 mg IM PRN PRN PRN Reason: Hypoglycemia Hydralazine HCl (Apresoline) 10 mg SLOW IVP Q4H PRN PRN Reason: Hypertension Dextrose/Water (D5w) 1,000 mls @ 0 mls/hr IV .Q0M PRN PRN Reason: Hypoglycemia Piperacillin Sod/Tazobactam (Sod 3.375 gm/ Sodium Chloride) 100 mls @ 200 mls/ hr IVPB 0300,0900,1500,2100 [facility] Last Admin: 12/20/18 15:20 Dose: 100 mls Vancomycin HCl 1.5 gm/ Sodium (Chloride) 300 mls @ 200 mls/hr IVPB 1100 [facility] Sodium Chloride (Normal Saline 0.9%) 1,000 mls @ 30 mls/hr IV .Q24H [facility] Insulin Human Lispro (Humalog) 0 units SC .MILD SLIDING SCALE PRN PRN Reason: Mild Correctional Scale Last Admin: 12/19/18 18:00 Dose: 3 unit Insulin Human Lispro (Humalog) 0 units SC .BEDTIME SLIDING SC PRN PRN Reason: Bedtime Correctional Scale Methimazole () 5 mg PO SuTuThSa@0900 [facility] Last Admin: 12/20/18 08:49 Dose: 5 mg Methimazole () 2.5 mg PO MWF@0900 [facility] Last Admin: 12/19/18 09:26 Dose: 2.5 mg Metoprolol Succinate (Toprol Xl) 50 mg PO DAILY [facility] Last Admin: 12/20/18 05:15 Dose: 50 mg Mirabegron (Myrbetriq Er) 50 mg PO HS [facility] Last Admin: 12/19/18 20:06 Dose: 50 mg Miscellaneous Medication (Pharmacy To Dose) 1 each IVPB ONE PRN PRN Reason: Pharmacy to dose Stop: 12/28/18 17:33 Miscellaneous Medication (Pharmacy To Dose) 1 each PO ONE PRN PRN Reason: Pharmacy to dose Stop: 12/28/18 17:57 Saccharomyces Boulardii (Florastor) 250 mg PO DAILY [facility] Last Admin: 12/20/18 08:50 Dose: 250 mg Sacubitril/Valsartan (Entresto 24 Mg-26 Mg Tablet) 1 tab PO BID [facility] Last Admin: 12/20/18 08:49 Dose: 1 tab Sertraline HCl (Zoloft) [facility] Last Admin: 12/20/18 08:50 Dose: 100 mg Simvastatin (Zocor) [address] [facility] Last Admin: 12/19/18 20:06 Dose: 20 mg Spironolactone (Aldactone) 12.5 mg PO DAILY [facility] Last Admin: 12/20/18 08:50 Dose: 12.5 mg Trazodone HCl (Desyrel) [address] [facility] Last Admin: 12/19/18 20:06 Dose: 50 mg Trospium (Trospium) 20 mg PO BID [facility] Last Admin: 12/20/18 08:50 Dose: 20 mg
[2018-12-20] MEDS: Sodium Chloride 0.9% 1,000 ML IV SCH (18:32)
--- NOTE | 2018-12-20 20:11 | PDOC.CTH ---
Cardiology Progress Note - Subjective He had his foot surgery and did well. - Objective Vital Signs Temp Pulse Resp BP BP Pulse Ox 12/20/18 16:00 98.0 F 75 18 160/91 H 95 12/20/18 14:33 97.6 F 78 18 159/71 H 95 12/20/18 11:00 97.8 F 72 16 154/85 H 96 12/20/18 08:54 95 Weight 174 lb 2 oz 12/19/18 12/20/18 12/21/18 06:59 06:59 06:59 Intake Total 1120 600 Balance 1120 600 - Physical Examination General/Neuro: alert & oriented x3, NAD Neck: no JVD present Lungs: CTA, unlabored respirations Heart: RRR Abdomen: NT/ND Extremities: other: (no edema) - Labs Result Diagrams: 12/19/18 06:32 12/19/18 06:32 - Assessment/Plan 1. PVD 2. Non healing ulcer 3. Ostemyelitis. PLAN: - CV stable - For peripheral angio and possible intervention tomorrow with Dr. Nolen. - Will sign off. Please call with any questions.
[2018-12-20] MEDS: Simvastatin 20 MG TAB PO SCH (20:56)
[2018-12-20] MEDS: traZODone HCl 50 MG TAB PO SCH (21:05)
[2018-12-20] MEDS ORDERED: Vancomycin HCl 1.25 GM in Sodium Chloride 0.9% 250 ML 250 ML IVPB SCH (23:00)
[2018-12-21] MEDS: Piperacillin/Tazobactam 3.375 GM in Sodium Chloride 0.9% 100 ML IVPB SCH ×4 (02:14→20:31)
[2018-12-21] MEDS ORDERED: Metoprolol Tartrate 5 MG/5 ML VIAL ONE ×2 (04:44→06:34)
[2018-12-21 06:08] LABS: #Eosinphils 0.2 thou/uL (0.0-0.7); #Lymphocytes 0.9 thou/uL (1.20-3.40); #Monocytes 0.6 thou/uL (0.11-0.59); #Neutrophils 4.2 thou/uL (1.40-6.50); %Basophils 0.7 % (0.0-1.0); %Eosinophils 4.1 % (0.0-10.0); %Lymphocytes 15.4 % (21.0-51.0); %Monocytes 10.1 % (0.0-10.0); %Neutrophils 69.7 % (42.0-75.0); Hemoglobin 12.1 g/dL (14.0-18.0); Mean Corpuscular HGB CONC 31.1 g/dL (32.0-36.0); Mean Corpuscular Hemoglobin 28.5 pg (27.0-31.0); Mean Corpuscular Volume 91.5 fL (78.0-98.0); Mean Platelet Volume 8.4 fL (7.4-10.4); Platelet Count 185 thou/uL (130-400); RBC Distribution Width 14.7 % (11.5-14.5); Red Blood Cell (RBC) Count 4.26 mill/uL (4.70-6.10)
[2018-12-21 06:13] LABS: INR-International Normal Ratio 1.5; Prothrombin Time 17.7 SEC (12.0-14.7)
[2018-12-21 06:31] LABS: Anion Gap 11 mmol/L (10-20); BUN (Urea Nitrogen) 18 mg/dL (8.4-25.7); Calc. Creatinine Clearance 50 mL/min (70-130); Calcium 8.7 mg/dL (7.8-10.44); Carbon Dioxide 23 mmol/L (23-31); Chloride 107 mmol/L (98-107); Estimated GFR-MDRD 59; Glucose 167 mg/dL (83-110); Potassium 3.9 mmol/L (3.5-5.1); Sodium 137 mmol/L (136-145)
[2018-12-21] MEDS: Aspirin 81 mg Enteric Coated Tablet PO SCH (07:39)
[2018-12-21] MEDS: Trospium 20 MG TAB PO SCH ×2 (07:40→20:31)
[2018-12-21] MEDS: Saccharomyces boulardii 250 MG CAP PO SCH (07:40)
[2018-12-21] MEDS ORDERED: Lidocaine 1% (PF) 30 ML VIAL ONE (09:05)
[2018-12-21] MEDS ORDERED: hydrALAZINE 20 MG/ML VIAL ONE (10:13)
[2018-12-21] MEDS ORDERED: Vancomycin HCl 1.5 GM in Sodium Chloride 0.9% 250 ML 300 ML IVPB SCH (11:00)
--- NOTE | 2018-12-21 12:33 | OP ---
DATE OF PROCEDURE: 12/21/2018 PREOPERATIVE DIAGNOSIS: Ischemic left second toe. PROCEDURE PERFORMED: Aortogram, left lower extremity runoff. ANESTHESIA: Local, 1% lidocaine. CONTRAST: 24 mL. FLUORO: 2.5 minutes. DESCRIPTION OF PROCEDURE: After prepping and draping, ultrasound-guided puncture of the right common femoral artery was carried out on first pass. Wire, dilator, and 5-Bolivian sheath were placed. A Contra catheter was used to obtain aortogram and iliofemoral runoff, and bilaterally aorta, common internal and external iliacs were widely patent, as were both common femoral arteries, origins of the superficial and deep femoral. On the left, the superficial was widely patent with minimal plaquing as was the popliteal. Anterior tibial occluded several centimeters from its origin as did the posterior tibial with the peroneal being patent to the ankle. Posterior tibial reconstituted at the medial malleolus and the anterior tibial reconstituted in the distal third of the calf, although was a small diseased vessel and did not give off a dorsalis pedis. Catheter was withdrawn over a wire after it had been placed in the left superficial femoral artery for best angiography. Job ID: [id number]
--- NOTE | 2018-12-21 14:29 | PRG ---
DATE OF SERVICE: 12/21/2018 SUBJECTIVE: The patient had amputation and had study of his lower extremity on left side with angiogram and it showed collaterals having developed. The patient does not need any revascularization at this point in time. The patient is anxious to leave the hospital. OBJECTIVE: VITAL SIGNS: With slight elevation in systolic blood pressure, otherwise normal. Normal temperature. LUNGS: Clear. HEART: S1 and S2. Regular rate. ABDOMEN: Soft, not distended or tender. No ascites. No bladder distention. The area of the foot is dressed, not removed at this time, and microbiology is pending. Gram stain from the tissue with few gram-positive cocci in clusters. ASSESSMENT: Type 2 diabetes, ischemic cardiomyopathy, peripheral vascular disease with collaterals having developed in left lower extremity, osteomyelitis second toe, status post partial amputation. DISCUSSION: The level of the amputation appears to be clear from the margin of infection and we will recommend a conversion to oral doxycycline for discharge planning. Following up the results of the final cultures. Keep on doxycycline for about 3 weeks. He is at risk for further levels of amputation in view of the peripheral vascular disease. Job ID: [id number] [facility]
[2018-12-21] MEDS: Sodium Chloride 0.9% 1,000 ML IV SCH (15:42)
[2018-12-21] MEDS ORDERED: Iopamidol 370 76% 50 ML VIAL FS ONE (15:47)
--- NOTE | 2018-12-21 16:47 | PRG ---
DATE OF SERVICE: 12/21/2018 SUBJECTIVE: An 88-year-old male with atrial fibrillation, on anticoagulation; hypertension; dyslipidemia; and diabetes mellitus type 2; presented to the hospital with swelling and redness of the left second toe. His workup was consistent with osteomyelitis. He underwent left second toe amputation by Dr. Eda Medrano yesterday. He had an arterial ultrasound of lower extremity on admission that was consistent with peripheral vascular disease. He underwent lower extremity aortogram by Dr. Nolen earlier today. No interventions were performed. He denies any fever; however, had mild chills yesterday. Pain is controlled at this time. No nausea or vomiting reported. CURRENT MEDICATIONS: Reviewed. The patient is on IV Zosyn along with his other home medications. PHYSICAL EXAMINATION: VITAL SIGNS: Temperature 97.9, pulse rate of 69, respirations of 18, blood pressure of 161/78, O2 saturation of 94% on room air. GENERAL: An 88-year-old male, in no apparent distress. LUNGS: Clear to auscultation bilaterally. No wheezing. HEART: S1, S2 present. Regular. ABDOMEN: Soft. Bowel sounds present. EXTREMITIES: Dressing noted over the left foot. No calf tenderness. NEUROLOGY: Grossly nonfocal. LABORATORY FINDINGS: WBC 6.0 with hemoglobin 12.1, platelets 185. INR 1.5 today, creatinine 1.18 with normal electrolytes. Blood culture is negative at 48 hours. Bacterial culture from the toe is pending at this time. Gram stain showed few gram-positive cocci singly and in clusters. IMPRESSION: 1. Osteomyelitis with cellulitis of the left second toe, status post amputation. Please note, the patient failed outpatient therapy. 2. Peripheral vascular disease. 3. Hypertension. 4. Paroxysmal atrial fibrillation. 5. Chronic diastolic heart failure. 6. Diabetes mellitus type 2. 7. Hypertension. 8. Hyperthyroidism. 9. Overactive bladder. 10. Chronic anticoagulation. 11. Chronic kidney disease stage 3. 12. Chronic anemia. PLAN: Vancomycin has been discontinued by Infectious Disease. We will continue IV Zosyn until final cultures. Probably can be changed to doxycycline at discharge based on the culture for approximately 3 weeks per Infectious Disease. I discussed with Dr. Miles. We will continue insulin sliding scale. We will continue all of his home medications including Entresto. 81 mg aspirin was added due to peripheral vascular disease. We will continue statins. Warfarin will be resumed at 5 mg q.p.m. from today. We will recheck PT/INR along with other labs in a.m. Job ID: [id number] [facility]
[2018-12-21] MEDS ORDERED: Warfarin Sodium 5 MG TAB PO SCH (17:00)
[2018-12-21] MEDS: Methimazole 5 MG TAB PO SCH (18:36)
[2018-12-21] MEDS: Spironolactone 25 MG TAB PO SCH (18:38)
[2018-12-21] MEDS: traZODone HCl 50 MG TAB PO SCH (20:31)
[2018-12-21] MEDS: Simvastatin 20 MG TAB PO SCH (20:31)
[2018-12-22] MEDS: Piperacillin/Tazobactam 3.375 GM in Sodium Chloride 0.9% 100 ML IVPB SCH ×3 (02:27→15:24)
[2018-12-22 05:21] LABS: #Eosinphils 0.2 thou/uL (0.0-0.7); #Lymphocytes 1.1 thou/uL (1.20-3.40); #Monocytes 0.5 thou/uL (0.11-0.59); #Neutrophils 4.4 thou/uL (1.40-6.50); %Basophils 0.1 % (0.0-1.0); %Eosinophils 3.6 % (0.0-10.0); %Lymphocytes 17.6 % (21.0-51.0); %Monocytes 8.5 % (0.0-10.0); %Neutrophils 70.2 % (42.0-75.0); Hemoglobin 12.6 g/dL (14.0-18.0); Mean Corpuscular HGB CONC 32.3 g/dL (32.0-36.0); Mean Corpuscular Hemoglobin 29.1 pg (27.0-31.0); Mean Corpuscular Volume 90.1 fL (78.0-98.0); Mean Platelet Volume 8.2 fL (7.4-10.4); Platelet Count 201 thou/uL (130-400); RBC Distribution Width 14.9 % (11.5-14.5); Red Blood Cell (RBC) Count 4.33 mill/uL (4.70-6.10); White Blood Cell (WBC) Count 6.2 thou/uL (4.8-10.8)
[2018-12-22 05:26] LABS: INR-International Normal Ratio 1.3; Prothrombin Time 16.3 SEC (12.0-14.7)
[2018-12-22 05:46] LABS: Anion Gap 12 mmol/L (10-20); BUN (Urea Nitrogen) 16 mg/dL (8.4-25.7); Calc. Creatinine Clearance 49 mL/min (70-130); Calcium 9.2 mg/dL (7.8-10.44); Carbon Dioxide 22 mmol/L (23-31); Chloride 108 mmol/L (98-107); Estimated GFR-MDRD 56; Glucose 129 mg/dL (83-110); Potassium 3.7 mmol/L (3.5-5.1); Sodium 138 mmol/L (136-145)
[2018-12-22] MEDS: Spironolactone 25 MG TAB PO SCH (09:41)
[2018-12-22] MEDS: Aspirin 81 mg Enteric Coated Tablet PO SCH (09:41)
[2018-12-22] MEDS: Saccharomyces boulardii 250 MG CAP PO SCH (09:41)
[2018-12-22] MEDS: Methimazole 5 MG TAB PO SCH (09:42)
[2018-12-22] MEDS: Trospium 20 MG TAB PO SCH (09:42)
[2018-12-22] MEDS: Sodium Chloride 0.9% 1,000 ML IV SCH (15:49)
[2018-12-22 16:38] VITALS: BP 153/81; TEMP 98
--- NOTE | 2018-12-23 04:40 | DIS ---
DATE OF ADMISSION: 12/17/2018 DATE OF DISCHARGE: 12/22/2018 CONSULTANTS: Infectious Disease, Dr. Miles; Vascular Surgery, Dr. Nolen; Cardiology, Dr. Rivas; and Podiatry, Dr. Medrano. PROCEDURES PERFORMED: 1. Partial amputation of the left second toe on December 20. 2. Aortogram on December 21. MEDICATIONS: Reconciled at discharge. New medications are; 1. Aspirin 81 mg daily. 2. Doxycycline 100 mg b.i.d. for 3 weeks. 3. Florastor 250 mg daily for one month. Medications to resume are; 1. Vitamin D3 is 1000 units daily. 2. Iron 28 mg one tablet in the evening. 3. Methimazole 5 mg one-half tablet on Monday, Monday, Monday, and one full tablet on Monday, Monday, Monday, . 4. Metoprolol succinate 50 mg daily. 5. Myrbetriq 50 mg at bedtime. 6. Entresto 24-26 one tablet b.i.d. 7. Sertraline 100 mg daily. 8. Simvastatin 20 mg at bedtime. 9. Spironolactone 12.5 mg daily. 10. Trospium 20 mg b.i.d. 11. Warfarin 5 mg tablets 1-1/2 tablets, Monday, Monday, , Monday and one tablet on Monday, Monday, and Monday. 12. Metformin extended release 500 mg b.i.d. 13. Trazodone 50 mg at bedtime. FINAL DIAGNOSIS: Cellulitis and osteomyelitis of the left second toe, now status post amputation. SECONDARY DIAGNOSES: 1. Atrial fibrillation, on anticoagulation with warfarin - currently subtherapeutic INR 2. Type 2 diabetes. 3. Peripheral vascular disease. 4. Chronic diastolic heart failure. 5. Hypertension. 6. Hyperthyroidism. 7. Overactive bladder. 8. Chronic anemia. 9. Chronic kidney disease, stage 3. HISTORY OF PRESENT ILLNESS: Mr. Schreiber is an 88-year-old male with the above medical problems, who presented to the emergency room at the instruction of his sizer machine due to concern of spreading of infection. Patient was found to have a cellulitis as well as osteomyelitis and was admitted. HOSPITAL COURSE: Patient was managed on Zosyn and vancomycin, underwent amputation with Dr. Medrano two days later. Per the postoperative note, which shows a partial left second toe amputation. He was continued on Zosyn, with recommendation to transition over to doxycycline after discharge for 3 weeks of oral therapy. He has tolerated this well. Due to concern for vascular insufficiency, patient was evaluated by Dr. Nolen, and underwent an aortogram on December 21. He was found to have occlusions , however, there reconstitution to his foot. No interventions were recommended. In preparation for surgery, the patient's warfarin had been held, it was resumed last night, and his INR today is 1.3. I recommend that he follow up with the [facility] on Monday, resume his usual dosing of Coumadin and this will need to be monitored and adjusted per his Coumadin clinic protocol. Patient reports that he is seen at [facility], anticipate that he is at the [facility]. Patient is overall feeling well, breathing well, and meets criteria for discharge to home. PHYSICAL EXAMINATION: VITAL SIGNS: Temperature 99.1, pulse 70, respirations 16, sat is 97% on room air, and blood pressure 151/75. GENERAL: Awake, alert, responsive, in no apparent distress. LUNGS: Clear to auscultation bilateral. HEART: Normal S1, S2. Regular rate and rhythm. No significant murmurs. ABDOMEN: Soft with present bowel sounds. Nontender. Nondistended. EXTREMITIES: His left lower extremity is Shreyas wrapped, bilateral, only trace pitting edema. LABORATORY DATA: Wilkins findings and test results. CBC; 6.2, 12.6, 39, and 201. INR today is 1.3 (on December 17, 2.4; December 19, 1.8; December 20, 1.6; December 21, 1.5; and December 22, 1.3). Chemistry; 138, 3.7, 108, 22, 60, 1.22, and 129. Urinalysis showed trace blood and present protein, negative leuk esterase and nitrite and 0 to 3 red blood cells. Bacterial culture from toe tissue showed moderate mixed skin adrianna. Anaerobic culture in progress. Blood cultures negative. Urine culture less than 10,000 skin adrianna. Foot x-ray on December 20 shows amputation of the second toe through the middle phalanx and persistent absence of the distal tuft of the distal phalanx of the great toe. Vascular, December 17, left lower extremity ultrasound negative for DVT. December 17, foot x-ray, absence of the distal phalanges of the first and second toes concerning for osteomyelitis. DIET: Heart healthy. ACTIVITY: Patient was encouraged to not operate machinery until he follows up with Dr. Ngo. 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 I recommend that until he follow up with Dr. Ngo that he not participate in this activity. FOLLOWUP: 1. Dr. Ngo recommended early next week for reevaluation and discussion on any needed limitations, and to review coumadin/INR if this is not performed by the [facility] 2. Dr. Miles within 2 weeks to reevaluate infection. 3. Dr. Medrano this next week to reevaluate the wound. 4. Dr. Rivas as previously scheduled. DIET: Heart healthy and carbohydrate consistent. CODE STATUS: Full. DISCHARGE DISPOSITION: To home. We reviewed with patient and his family this hospitalization the importance of followup and to seek care precautions. There were no questions at the end of evaluation. TIME SPENT: Total time coordinating discharge is 40 minutes. Job ID: [id number] [facility]
--- NOTE | 2018-12-25 08:06 | OP ---
DATE OF PROCEDURE: 12/20/2018 PREOPERATIVE DIAGNOSES: 1. Osteomyelitis, distal phalanx, left second digit. 2. Chronic ulceration, left second toe. 3. Diabetes with neuropathy. 4. Peripheral vascular disease. POSTOPERATIVE DIAGNOSES: 1. Osteomyelitis, distal phalanx, left second digit. 2. Chronic ulceration, left second toe. 3. Diabetes with neuropathy. 4. Peripheral vascular disease. PROCEDURE PERFORMED: Partial amputation, second digit, left foot. ANESTHESIA: TIVA with local foot block. HEMOSTASIS: Pneumatic ankle tourniquet at 250 mmHg. ESTIMATED BLOOD LOSS: Less than 5 mL. MATERIALS: 4-0 Vicryl and 2-0 Prolene. INJECTABLES: 10 mL of 0.5% Marcaine plain. IMPLANTS: None. DESCRIPTION OF PROCEDURE: The patient was brought into the operating room and placed on the operating table in supine position. A well-padded pneumatic ankle tourniquet was placed about the patient's left ankle. Following administration of IV anesthesia, local foot block was given utilizing 10 mL of 0.5% Marcaine plain. The foot was then scrubbed, prepped, and draped in usual aseptic manner. Esmarch bandage was used to exsanguinate the patient's left foot and the pneumatic ankle tourniquet was then inflated to 250 mmHg, which provided adequate hemostasis throughout the entire procedure. Next, attention was then directed to the distal aspect of the patient's second digit, where a fishmouth incision was made encompassing the distal aspect of the digit and all ulcerative gangrene tissue. Upon adequate closure of the distal phalanx, it was carefully resected and passed from the operative field. At this time, the intermediate phalanx was then carefully resected and passed from the operative field. The wound was irrigated with copious amounts of sterile normal saline and mixture. The subcuticular structures were reapproximated and coapted utilizing 4-0 Vicryl. The skin was closed utilizing 2-0 Prolene in a simple interrupted suture technique. A compressive dressing was then placed about the patient's left foot, and the pneumatic ankle tourniquet was released with prompt hyperemic response noted to all digits of the left foot. DISCHARGE SUMMARY: The patient tolerated the procedure and anesthesia. The patient is to be discharged to his room. He will follow up in the office within 1 week of the procedure. He is allowed to be discharged when he is okayed by the hospitalist and presiding judge. Job ID: [id number]
== END 2018-12-22 17:00 | disposition home or self-care (01) | DRG 617 ==
LOC: SCSER 18:44 → ERHOLD 19:45 → T4-A 12-18 16:20
PROVIDERS: ADMIT Internal Medicine; ATTEND Internal Medicine
PROC: 0Y6S0Z3 Detachment at Left 2nd Toe, Low, Open Approach (ICD-10-PCS; principal; 2018-12-20)
PROC: B41D1ZZ Fluoroscopy of Aorta and Bilateral Lower Extremity Arteries using Low Osmolar Contrast (ICD-10-PCS; 2018-12-20)
DX: E11.69 Type 2 diabetes mellitus with other specified complication (principal); M86.172 Other acute osteomyelitis, left ankle and foot; I50.22 Chronic systolic (congestive) heart failure; I13.0 Hypertensive heart and chronic kidney disease with heart failure and stage 1 through stage 4 chronic kidney disease, or unspecified chronic kidney disease; E11.52 Type 2 diabetes mellitus with diabetic peripheral angiopathy with gangrene; I96 Gangrene, not elsewhere classified; I48.91 Unspecified atrial fibrillation; E05.90 Thyrotoxicosis, unspecified without thyrotoxic crisis or storm; E78.5 Hyperlipidemia, unspecified; N32.81 Overactive bladder; N18.3 Chronic kidney disease, stage 3 (moderate); I25.5 Ischemic cardiomyopathy; E11.51 Type 2 diabetes mellitus with diabetic peripheral angiopathy without gangrene; E11.22 Type 2 diabetes mellitus with diabetic chronic kidney disease; I48.0 Paroxysmal atrial fibrillation; Z79.01 Long term (current) use of anticoagulants; Z87.891 Personal history of nicotine dependence; Z79.4 Long term (current) use of insulin; Z95.810 Presence of automatic (implantable) cardiac defibrillator; Z85.828 Personal history of other malignant neoplasm of skin; Z79.899 Other long term (current) drug therapy; Z79.82 Long term (current) use of aspirin
CPT/HCPCS: 36246; 36415; 36416; 75630; 75710; 76942; 80048; 80202; 81003; 81015; 83605; 84439; 84443; 85025; 85610; 85730; 87040; 87070; 87076; 87077; 87086; 87205; 93005; 93010; 93923; 96365; 96366; 96367; C1769; J0171; J0360; J1644; J2001; J2405; J2543; J2704; J3010; J3370; J3490; J7050; Q9967; S0020

== ENCOUNTER 2019-04-04 16:30 | Emergency (ER) | payer MEDICARE, BC ==
--- NOTE | 2019-04-04 17:19 | CT ---
CT CERVICAL SPINE WITHOUT IV CONTRAST: 04/04/19 HISTORY: Neck pain for four days. TECHNIQUE: Contiguous axial CT images are obtained through the cervical spine from the skull base to the T2-3 le hamlet. Sagittal and coronal reformat images are provided. COMPARISON: 10/23/14. FINDINGS: Degenerative changes are again seen throughout the cervical spine. Degenerative changes are greatest at the C5-6 and C6-7 levels where there is severe loss of intervertebral disc height as well as vacuu m phenomenon in the intervertebral disc as well as end plate degenerative changes at these levels. Th e degenerative changes have mildly progressed compared to the prior exam. There are prominent facet d egenerative changes at the C3-4 and C4-5 levels also noted on prior exam. There is moderate left sided neural foraminal narrowing at C4-5 level, severe right and mild left lola ed neural foraminal narrowing at the C5-6 level with mild to moderate left sided neural foraminal anamaria rowing at the C6-7y level secondary to bony encroachment related to disc osteophyte complexes and fac et degenerative changes. The vertebral body heights are within normal limits. No fracture or subluxation is seen involving the cervical spine. The prevertebral soft tissues are within normal limits. There is a large hypodense right thyroid mass measuring 4.1 cm transverse x 4.1 cm AP. This mass was also present on the prior exam and is not significantly changed. Vascular calcifications are again seen in the carotid arteries. There is mild biapical pleural and p arenchymal scarring present. No other interval change. IMPRESSION: 1. Right thyroid mass also noted on prior study in 2014. This can be further evaluated with ultr asound if this has not been performed. 2. 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 3. No fracture or subluxation involving the cervical spine. POS: OFF
--- NOTE | 2019-04-04 17:21 | RAD ---
FOUR VIEWS RIGHT KNEE: 04/04/19 HISTORY: Right knee pain. FINDINGS: There is tricompartment osteophytosis greatest involving the patellofemoral joint. There is also mild narrowing of the patellofemoral joint. There is no significant narrowing involving the medial or lat eral joint compartments. Osteopenia is present. There is no fracture or dislocation identified. A cristina nt effusion is seen in the suprapatellar location. Prominent vascular calcifications are seen posteri or to the knee. IMPRESSION: 1. Osteopenia and osteoarthritis. 2. No acute osseous abnormality. 3. Small joint effusion. 4. Dense vascular calcifications. POS: OFF
== END 2019-04-04 17:23 | disposition home or self-care (01) ==
LOC: SCSER 16:30
DX: S16.1XXA Strain of muscle, fascia and tendon at neck level, initial encounter (principal); M25.561 Pain in right knee; I49.9 Cardiac arrhythmia, unspecified; I48.91 Unspecified atrial fibrillation; E11.9 Type 2 diabetes mellitus without complications; E05.90 Thyrotoxicosis, unspecified without thyrotoxic crisis or storm; I10 Essential (primary) hypertension; F32.9 Major depressive disorder, single episode, unspecified; Z79.899 Other long term (current) drug therapy; Z79.01 Long term (current) use of anticoagulants; X50.9XXA Other and unspecified overexertion or strenuous movements or postures, initial encounter
CPT/HCPCS: 72125

== ENCOUNTER 2020-02-13 07:52 | Outpatient (CLI) | payer MEDICARE, BC, OTHER ==
[2020-02-13 14:42] LABS: #Eosinphils 0.1 thou/uL (0.0-0.7); #Lymphocytes 1.4 thou/uL (1.20-3.40); #Monocytes 0.6 thou/uL (0.11-0.59); %Basophils 0.1 % (0.0-1.0); %Eosinophils 2.3 % (0.0-10.0); %Lymphocytes 22.2 % (21.0-51.0); %Monocytes 9.3 % (0.0-10.0); %Neutrophils 66.1 % (42.0-75.0); Hemoglobin 14.1 g/dL (14.0-18.0); Mean Corpuscular HGB CONC 32.6 g/dL (32.0-36.0); Mean Corpuscular Volume 92.1 fL (78.0-98.0); Platelet Count 183 thou/uL (130-400); Red Blood Cell (RBC) Count 4.68 mill/uL (4.70-6.10); White Blood Cell (WBC) Count 6.1 thou/uL (4.8-10.8)
[2020-02-13 15:24] LABS: ALT (SGPT) 14 U/L (8-55); AST (SGOT) 17 U/L (5-34); Albumin 4.2 g/dL (3.4-4.8); Alkaline Phosphatase 56 U/L (40-110); Anion Gap 13 mmol/L (10-20); BUN (Urea Nitrogen) 30 mg/dL (8.4-25.7); Bilirubin, Total 0.5 mg/dL (0.2-1.2); Calc. Creatinine Clearance 0 mL/min (70-130); Calcium 9.2 mg/dL (7.8-10.44); Carbon Dioxide 24 mmol/L (23-31); Cardiac Risk 3.8 (Less than 4.5); Chloride 103 mmol/L (98-107); Cholesterol 137 mg/dl (< 200 Desired); Estimated GFR-MDRD 57; Globulin 2.8 g/dL (2.4-3.5); Glucose 124 mg/dL (83-110); HDL Cholesterol 36 mg/dL (>60 Neg Risk); LDL Cholesterol, Calculated 81 mg/dL; Potassium 4.9 mmol/L (3.5-5.1); Sodium 135 mmol/L (136-145); Triglycerides 102 mg/dL (Less than 150)
[2020-02-14 13:49] LABS: SARS-CoV-2 MS2 Positive; SARS-CoV-2 N Gene Negative; SARS-CoV-2 S Gene Negative; SARS-CoV-2 by NAA Not Detected (NotDetected); SARS-CoV-2 orf1ab Negative
== END 2020-02-13 07:53 | disposition home or self-care (01) ==
LOC: LABBT 07:52
PROVIDERS: ATTEND Internal Medicine Cardiovascular Disease
DX: Z01.812 Encounter for preprocedural laboratory examination (principal); I25.10 Atherosclerotic heart disease of native coronary artery without angina pectoris; Z20.828 Contact with and (suspected) exposure to other viral communicable diseases
CPT/HCPCS: 80053; 80061; 85025; U0003; 87635

== ENCOUNTER 2020-03-02 06:25 | Outpatient (CLI) | payer MEDICARE, BC, OTHER ==
[2020-03-02 16:12] LABS: #Eosinphils 0.2 thou/uL (0.0-0.7); #Lymphocytes 1.2 thou/uL (1.20-3.40); #Monocytes 0.5 thou/uL (0.11-0.59); #Neutrophils 3.8 thou/uL (1.40-6.50); %Basophils 0.2 % (0.0-1.0); %Eosinophils 2.8 % (0.0-10.0); %Lymphocytes 21.7 % (21.0-51.0); %Monocytes 8.1 % (0.0-10.0); %Neutrophils 67.1 % (42.0-75.0); Hemoglobin 13.9 g/dL (14.0-18.0); Mean Corpuscular HGB CONC 31.7 g/dL (32.0-36.0); Mean Corpuscular Hemoglobin 29.7 pg (27.0-31.0); Mean Corpuscular Volume 93.6 fL (78.0-98.0); Mean Platelet Volume 9.2 fL (7.4-10.4); Platelet Count 206 thou/uL (130-400); White Blood Cell (WBC) Count 5.6 thou/uL (4.8-10.8)
[2020-03-02 16:39] LABS: ALT (SGPT) 31 U/L (8-55); AST (SGOT) 17 U/L (5-34); Albumin 4.1 g/dL (3.4-4.8); Alkaline Phosphatase 54 U/L (40-110); BUN (Urea Nitrogen) 29 mg/dL (8.4-25.7); Bilirubin, Total 0.5 mg/dL (0.2-1.2); Calc. Creatinine Clearance 0 mL/min (70-130); Calcium 9.2 mg/dL (7.8-10.44); Carbon Dioxide 24 mmol/L (23-31); Cardiac Risk 4.4 (Less than 4.5); Chloride 104 mmol/L (98-107); Cholesterol 142 mg/dl (< 200 Desired); Estimated GFR-MDRD 56; Globulin 2.8 g/dL (2.4-3.5); Glucose 156 mg/dL (83-110); HDL Cholesterol 32 mg/dL (>60 Neg Risk); LDL Cholesterol, Calculated 77 mg/dL; Potassium 5.1 mmol/L (3.5-5.1); Protein, Total 6.9 g/dL (5.8-8.1); Sodium 138 mmol/L (136-145); Triglycerides 165 mg/dL (Less than 150)
[2020-03-02 17:12] LABS: Anion Gap 15 mmol/L (10-20)
[2020-03-03 13:23] LABS: SARS-CoV-2 MS2 Positive; SARS-CoV-2 N Gene Negative; SARS-CoV-2 S Gene Negative; SARS-CoV-2 by NAA Not Detected (NotDetected); SARS-CoV-2 orf1ab Negative
== END 2020-03-02 06:26 | disposition home or self-care (01) ==
LOC: LABBT 06:25
PROVIDERS: ATTEND Internal Medicine Cardiovascular Disease
DX: Z01.812 Encounter for preprocedural laboratory examination (principal); I25.10 Atherosclerotic heart disease of native coronary artery without angina pectoris; Z20.828 Contact with and (suspected) exposure to other viral communicable diseases
CPT/HCPCS: 80053; 80061; 85025; U0003; 87635

== ENCOUNTER 2020-03-06 06:02 | Day surgery (SDC) | payer MEDICARE, BC | END 2020-03-06 09:51 | disposition home or self-care (01) | LOC: CCL 06:02 | PROVIDERS: ATTEND Internal Medicine Cardiovascular Disease | DX: I25.10 Atherosclerotic heart disease of native coronary artery without angina pectoris (principal); Z53.8 Procedure and treatment not carried out for other reasons; Z79.01 Long term (current) use of anticoagulants; Z79.84 Long term (current) use of oral hypoglycemic drugs; Z79.899 Other long term (current) drug therapy | CPT/HCPCS: 92928; 93458; 99152; 99153 ==

== ENCOUNTER 2020-03-09 05:54 | Day surgery (SDC) | payer MEDICARE, BC ==
[2020-03-06 16:27] VITALS: BMI 24.0
[2020-03-09] MEDS ORDERED: Lidocaine 1% (PF) 30 ML VIAL ONE (06:35)
[2020-03-09 07:45] LABS: #Eosinphils 0.1 thou/uL (0.0-0.7); #Lymphocytes 0.9 thou/uL (1.20-3.40); #Monocytes 0.5 thou/uL (0.11-0.59); %Basophils 0.3 % (0.0-1.0); %Lymphocytes 20.6 % (21.0-51.0); %Monocytes 10.2 % (0.0-10.0); %Neutrophils 65.9 % (42.0-75.0); Hemoglobin 13.7 g/dL (14.0-18.0); Mean Corpuscular HGB CONC 32.3 g/dL (32.0-36.0); Mean Corpuscular Hemoglobin 29.9 pg (27.0-31.0); Mean Corpuscular Volume 92.6 fL (78.0-98.0); Mean Platelet Volume 9.1 fL (7.4-10.4); Platelet Count 172 thou/uL (130-400); RBC Distribution Width 13.9 % (11.5-14.5); Red Blood Cell (RBC) Count 4.59 mill/uL (4.70-6.10); White Blood Cell (WBC) Count 4.6 thou/uL (4.8-10.8)
[2020-03-09 07:47] LABS: Anion Gap 13 mmol/L (10-20); BUN (Urea Nitrogen) 28 mg/dL (8.4-25.7); Calc. Creatinine Clearance 55 mL/min (70-130); Calcium 9.3 mg/dL (7.8-10.44); Carbon Dioxide 23 mmol/L (23-31); Chloride 105 mmol/L (98-107); Estimated GFR-MDRD 65; Glucose 133 mg/dL (83-110); Potassium 4.2 mmol/L (3.5-5.1); Sodium 137 mmol/L (136-145)
[2020-03-09] MEDS ORDERED: Fentanyl 100 MCG/2 ML VIAL ONE (07:55)
[2020-03-09] MEDS ORDERED: Midazolam HCl 2 mg/2 ml Vial ONE (07:55)
[2020-03-09] MEDS ORDERED: Heparin 10,000 UNITS/ 10 ML VIAL ONE (08:39)
[2020-03-09] MEDS ORDERED: TICAGRELOR 90 MG TABLET ONE (08:42)
[2020-03-09] MEDS ORDERED: Iopamidol 370 76% 100 ML VIAL ONE (09:32)
[2020-03-09] MEDS ORDERED: Iopamidol 370 76% 50 ML VIAL FS ONE (09:32)
[2020-03-09] MEDS ORDERED: hydrALAZINE 20 MG/ML VIAL ONE (10:21)
--- NOTE | 2020-03-10 16:12 | EKG ---
Test Reason : POST STENT Blood Pressure : / mmHG Vent. Rate : 070 BPM Atrial Rate : 300 BPM P-R Int : 000 ms QRS Dur : 170 ms QT Int : 462 ms P-R-T Axes : 000 -28 089 degrees QTc Int : 498 ms Electronic ventricular pacemaker No previous ECGs available Confirmed by ROD ROTHMAN ([id number]) on 03/10/2020 4:11:45 PM Referred By: JEEVAN Confirmed By:ROD ROTHMAN
== END 2020-03-09 15:50 | disposition home or self-care (01) ==
LOC: CCL 05:54
PROVIDERS: ATTEND Internal Medicine Cardiovascular Disease
PROC: 4A023N7 Measurement of Cardiac Sampling and Pressure, Left Heart, Percutaneous Approach (ICD-10-PCS; principal; 2020-03-09)
PROC: B2111ZZ Fluoroscopy of Multiple Coronary Arteries using Low Osmolar Contrast (ICD-10-PCS; 2020-03-09)
DX: I25.10 Atherosclerotic heart disease of native coronary artery without angina pectoris (principal); I10 Essential (primary) hypertension; E11.9 Type 2 diabetes mellitus without complications; I48.21 Permanent atrial fibrillation; Z79.899 Other long term (current) drug therapy; Z95.810 Presence of automatic (implantable) cardiac defibrillator
CPT/HCPCS: 36415; 80048; 85025; 85347; 92928; 93005; 93010; 93458; 99152; 99153; C1876; J0360; J1644; J2001; J2250; J3010; Q9967

== ENCOUNTER 2021-03-19 11:48 | Outpatient (CLI) | payer MEDICARE, BC ==
[2021-03-19 13:32] LABS: ALT (SGPT) 14 U/L (8-55); AST (SGOT) 14 U/L (5-34); Alkaline Phosphatase 54 U/L (40-110); Anion Gap 13 mmol/L (10-20); BUN (Urea Nitrogen) 24 mg/dL (8.4-25.7); Bilirubin, Total 0.5 mg/dL (0.2-1.2); Calc. Creatinine Clearance 0 mL/min (70-130); Calcium 10.1 mg/dL (7.8-10.44); Carbon Dioxide 28 mmol/L (23-31); Chloride 103 mmol/L (98-107); Glucose 100 mg/dL (83-110); Potassium 4.6 mmol/L (3.5-5.1); Sodium 139 mmol/L (136-145)
[2021-03-19 13:45] LABS: #Eosinphils 0.2 10x3/uL (0.0-0.5); #Monocytes 0.6 10x3/uL (0.0-1.1); #Neutrophils 4.2 10x3/uL (1.5-8.4); %Basophils 0.5 % (0.0-2.0); %Lymphocytes 16.2 % (18.0-47.0); %Monocytes 9.7 % (0.0-10.0); %Neutrophils 70.3 % (40.0-75.0); Hemoglobin 12.8 g/dL (13.5-17.5); Mean Corpuscular HGB CONC 31.6 g/dL (32.0-36.0); Mean Corpuscular Hemoglobin 27.9 pg (27.0-33.0); Mean Corpuscular Volume 88.4 fl (81.2-95.1); Mean Platelet Volume 11.1 fl (7.4-10.4); Platelet Count 191 10x3/uL (150-450); RBC Distribution Width 16.6 % (11.5-14.5); Red Blood Cell (RBC) Count 4.58 10x6/uL (4.32-5.72)
[2021-03-20 13:14] LABS: SARS-CoV-2 PCR by NAA Not Detected (NotDetected)
== END 2021-03-19 11:49 | disposition home or self-care (01) ==
LOC: LABBT 11:48
PROVIDERS: ATTEND Internal Medicine Cardiovascular Disease
DX: Z01.812 Encounter for preprocedural laboratory examination (principal); I25.10 Atherosclerotic heart disease of native coronary artery without angina pectoris; Z20.822 Contact with and (suspected) exposure to COVID-19
CPT/HCPCS: 80053; 85025; U0003; U0005

== ENCOUNTER 2021-03-24 07:01 | Day surgery (SDC) | payer MEDICARE, BC ==
[2021-03-23 16:01] VITALS: BMI 23.7
[2021-03-24 08:35] LABS: Cardiac Risk 3.4 (Less than 4.5)
[2021-03-24] MEDS ORDERED: Lidocaine 1% (PF) 30 ML VIAL ONE (09:25)
[2021-03-24] MEDS ORDERED: Midazolam HCl 2 mg/2 ml Vial ONE (09:44)
[2021-03-24] MEDS ORDERED: Fentanyl 100 MCG/2 ML VIAL ONE (09:44)
[2021-03-24] MEDS ORDERED: Heparin 10,000 UNITS/ 10 ML VIAL ONE (10:03)
[2021-03-24] MEDS ORDERED: TICAGRELOR 90 MG TABLET ONE (10:29)
[2021-03-24] MEDS ORDERED: Iopamidol 370 76% 50 ML VIAL FS ONE (12:47)
[2021-03-24] MEDS ORDERED: Iopamidol 370 76% 100 ML VIAL ONE (12:47)
[2021-03-24] MEDS ORDERED: Spironolactone 25 MG TAB PO SCH (16:00)
[2021-03-24] MEDS ORDERED: hydrALAZINE 20 MG/ML VIAL ONE (17:17)
== END 2021-03-24 18:27 | disposition home or self-care (01) ==
LOC: CCL 07:01
PROVIDERS: ATTEND Internal Medicine Cardiovascular Disease
PROC: 027034Z Dilation of Coronary Artery, One Artery with Drug-eluting Intraluminal Device, Percutaneous Approach (ICD-10-PCS; principal; 2021-03-24)
PROC: B2111ZZ Fluoroscopy of Multiple Coronary Arteries using Low Osmolar Contrast (ICD-10-PCS; 2021-03-24)
DX: T82.855A Stenosis of coronary artery stent, initial encounter (principal); I25.10 Atherosclerotic heart disease of native coronary artery without angina pectoris; Z79.01 Long term (current) use of anticoagulants; Z79.84 Long term (current) use of oral hypoglycemic drugs; Z79.899 Other long term (current) drug therapy
CPT/HCPCS: 36415; 80061; 85347; 92928; 99152; 99153; C1769; C9600; J0360; J1644; J2001; J2250; J3010; Q9967

== ENCOUNTER 2021-04-01 10:56 | Emergency (ER) | payer MEDICARE, BC ==
[2021-04-01 11:46] LABS: Bilirubin Negative (Negative); Blood, Urine Trace (Negative); Clarity Clear (Clear); Glucose, Urine (Dipstick) Normal (Negative); Ketone, Urine Negative (Negative); Leukocyte 500 Leu/uL (Negative); Nitrite Negative (Negative); Protein, Urine (Dipstick) 70 mg/dL (Neg-Trace); RBC/HPF 0-3 HPF (0-3); Squamous Epithelial 0-3 HPF (0-3); Urobilinogen Normal mg/dL (Less than 2); WBC/HPF Greater than 50 HPF (0-3); pH, Urine 5.5 (5.0-9.0)
[2021-04-01 11:47] LABS: Bacteria/HPF 1+ HPF (None Seen)
[2021-04-01] MEDS ORDERED: cefTRIAXone\\ROCEPHIN 2 GM VIAL ONE (12:12)
[2021-04-01 12:52] LABS: Hemoglobin 12.6 g/dL (14.0-18.0); Mean Corpuscular HGB CONC 33.5 g/dL (32.0-36.0); Mean Corpuscular Hemoglobin 29.4 pg (27.0-31.0); Mean Corpuscular Volume 87.8 fL (78.0-98.0); Mean Platelet Volume 9.6 fL (7.4-10.4); Platelet Count 178 thou/uL (130-400); RBC Distribution Width 15.3 % (11.5-14.5)
[2021-04-01 13:07] LABS: ALT (SGPT) 17 U/L (8-55); AST (SGOT) 20 U/L (5-34); Albumin 3.8 g/dL (3.4-4.8); Alkaline Phosphatase 55 U/L (40-110); Anion Gap 14 mmol/L (10-20); BUN (Urea Nitrogen) 33 mg/dL (8.4-25.7); Bilirubin, Total 0.8 mg/dL (0.2-1.2); Calc. Creatinine Clearance 0 mL/min (70-130); Calcium 9.5 mg/dL (7.8-10.44); Carbon Dioxide 22 mmol/L (23-31); Chloride 101 mmol/L (98-107); Globulin 3.6 g/dL (2.4-3.5); Glucose 167 mg/dL (83-110); Potassium 4.2 mmol/L (3.5-5.1); Protein, Total 7.4 g/dL (5.8-8.1); Sodium 133 mmol/L (136-145)
[2021-04-01 13:21] LABS: Band 15 % (5-11); Lymphocytes 4 % (21-51); MDiff Complete? YES; Monocytes 10 % (0-10); Neutrophil 71 % (42-75); Ovalocytes SLIGHT = 2-5 cells (100X) (0-1/hpf); Platelet Morphology Comment Appears Adequate
== END 2021-04-01 13:54 | disposition home or self-care (01) ==
LOC: ERS 10:56
DX: N39.0 Urinary tract infection, site not specified (principal); R33.9 Retention of urine, unspecified; I48.91 Unspecified atrial fibrillation; E11.9 Type 2 diabetes mellitus without complications; I10 Essential (primary) hypertension; Z87.891 Personal history of nicotine dependence; Z79.899 Other long term (current) drug therapy
CPT/HCPCS: 51702; 51798; 80053; 81003; 81015; 85025; 87077; 87086; 87186; 96365; J0696

== ENCOUNTER 2021-11-19 13:23 | Inpatient (IN) | payer MEDICARE, BC ==
[~2021-11-19 13:23] MED LIST changes: -Bupivacaine/Epinephrine 0.25% 30 ML VIAL ONE; -CEFAZOLIN/Water 2 GM/20 ML SYRINGE ONE; -Fentanyl 100 MCG/2 ML VIAL ONE; +Iopamidol-370 76% 500 ML 1 ML ONE; -Neomycin-Polymyxin 1 ML AMP ONE; -Sodium Chloride 0.9% 10 ML ONE
[2021-11-19 14:41] LABS: #Lymphocytes 0.6 thou/uL (1.20-3.40); #Monocytes 0.5 thou/uL (0.11-0.59); #Neutrophils 5.9 thou/uL (1.40-6.50); %Basophils 0.1 % (0.0-1.0); %Lymphocytes 8.9 % (21.0-51.0); %Monocytes 6.8 % (0.0-10.0); %Neutrophils 84.1 % (42.0-75.0); Hemoglobin 13.8 g/dL (14.0-18.0); Mean Corpuscular HGB CONC 31.3 g/dL (32.0-36.0); Mean Corpuscular Hemoglobin 29.4 pg (27.0-31.0); Mean Corpuscular Volume 93.8 fL (78.0-98.0); Mean Platelet Volume 8.3 fL (7.4-10.4); Platelet Count 222 thou/uL (130-400); RBC Distribution Width 17.3 % (11.5-14.5); Red Blood Cell (RBC) Count 4.71 mill/uL (4.70-6.10); White Blood Cell (WBC) Count 7.1 thou/uL (4.8-10.8)
[2021-11-19 15:04] LABS: ALT (SGPT) 20 U/L (8-55); AST (SGOT) 32 U/L (5-34); Alkaline Phosphatase 75 U/L (40-110); Anion Gap 17 mmol/L (10-20); BUN (Urea Nitrogen) 40 mg/dL (8.4-25.7); Bilirubin, Total 1.6 mg/dL (0.2-1.2); CK (CPK) 465 U/L (30-200); Calc. Creatinine Clearance 0 mL/min (70-130); Calcium 9.5 mg/dL (7.8-10.44); Carbon Dioxide 21 mmol/L (23-31); Chloride 104 mmol/L (98-107); Globulin 3.3 g/dL (2.4-3.5); Glucose 131 mg/dL (83-110); Potassium 4.6 mmol/L (3.5-5.1); Protein, Total 7.3 g/dL (5.8-8.1); Sodium 137 mmol/L (136-145)
[2021-11-19 16:56] LABS: Bilirubin Negative (Negative); Blood, Urine Trace (Negative); Clarity Turbid (Clear); Glucose, Urine (Dipstick) Normal (Negative); Ketone, Urine Negative (Negative); Leukocyte 500 Leu/uL (Negative); Nitrite Negative (Negative); Protein, Urine (Dipstick) 70 mg/dL (Neg-Trace); RBC/HPF 0-3 HPF (0-3); Specific Gravity, Urine 1.023 (1.002-1.036); Squamous Epithelial 0-3 HPF (0-3); Urobilinogen Normal mg/dL (Less than 2); pH, Urine 5.5 (5.0-9.0)
[2021-11-19 17:06] LABS: Bacteria/HPF 2+ HPF (None Seen); WBC/HPF 21-50 HPF (0-3)
[2021-11-19] MEDS ORDERED: cefTRIAXone\\ROCEPHIN 1 GM VIAL ONE (17:19)
[2021-11-19 17:36] LABS: CKMB 10.6 ng/mL (0-6.6)
[2021-11-19] MEDS ORDERED: Senokot S 8.6-50 MG TAB PO PRN (19:21)
[2021-11-19] MEDS ORDERED: Acetaminophen 325 MG TAB PO PRN (19:21)
[2021-11-19] MEDS ORDERED: Ondansetron PF 4 MG/2 ML Vial IVP PRN (19:21)
[2021-11-19] MEDS ORDERED: HYDROcodone/Acetaminophen 5/325 mg Tablet PO PRN (19:21)
[2021-11-19] MEDS ORDERED: cefTRIAXone\\ROCEPHIN 1 GM in Sodium Chloride 0.9% 100 ML IVPB SCH (20:00)
[2021-11-19] MEDS: Lactated Ringer's 1,000 ML IV SCH (21:16)
[2021-11-19 21:31] LABS: Troponin I 0.032 ng/mL (< 0.028)
[2021-11-19 22:09] LABS: Creatinine, Urine 144.97 mg/dL (63-166)
[2021-11-20 00:45] LABS: Troponin I 0.032 ng/mL (< 0.028)
[2021-11-20 04:54] LABS: #Lymphocytes 0.8 thou/uL (1.20-3.40); #Monocytes 0.7 thou/uL (0.11-0.59); %Basophils 0.6 % (0.0-1.0); %Eosinophils 0.3 % (0.0-10.0); %Lymphocytes 13.9 % (21.0-51.0); %Monocytes 13.3 % (0.0-10.0); Hemoglobin 12.7 g/dL (14.0-18.0); Mean Corpuscular HGB CONC 31.3 g/dL (32.0-36.0); Mean Corpuscular Hemoglobin 29.7 pg (27.0-31.0); Mean Corpuscular Volume 94.8 fL (78.0-98.0); Mean Platelet Volume 8.6 fL (7.4-10.4); Platelet Count 177 thou/uL (130-400); RBC Distribution Width 17.2 % (11.5-14.5); Red Blood Cell (RBC) Count 4.28 mill/uL (4.70-6.10); White Blood Cell (WBC) Count 5.6 thou/uL (4.8-10.8)
[2021-11-20 05:16] LABS: Anion Gap 15 mmol/L (10-20); BUN (Urea Nitrogen) 43 mg/dL (8.4-25.7); Calc. Creatinine Clearance 40 mL/min (70-130); Calcium 9.3 mg/dL (7.8-10.44); Carbon Dioxide 20 mmol/L (23-31); Chloride 108 mmol/L (98-107); Glucose 118 mg/dL (83-110); Potassium 4.3 mmol/L (3.5-5.1); Sodium 139 mmol/L (136-145)
[2021-11-20] MEDS ORDERED: Enoxaparin Sodium 30 MG/0.3 ML SYRINGE SC SCH (09:00)
[2021-11-20] MEDS: Sodium Bicarbonate Tab 325 MG TAB PO SCH ×2 (11:51→21:12)
[2021-11-20] MEDS ORDERED: Warfarin Sodium 5 MG TAB PO SCH ×2 (13:00→17:00)
[2021-11-20 13:33] LABS: PTT 46.8 sec (22.9-36.1); Prothrombin Time 41.8 sec (12.0-14.7)
[2021-11-20 13:37] LABS: INR-International Normal Ratio 4.2
[2021-11-20] MEDS: cefTRIAXone\\ROCEPHIN 1 GM in Sodium Chloride 0.9% 100 ML IVPB SCH (16:01)
[2021-11-20] MEDS: Lactated Ringer's 1,000 ML IV SCH (16:01)
[2021-11-20 19:17] LABS: Albumin 3.6 g/dL (3.4-4.8)
[2021-11-20 19:18] LABS: Chloride 104 mmol/L (98-107); Potassium 4.7 mmol/L (3.5-5.1); Sodium 138 mmol/L (136-145)
[2021-11-20 19:19] LABS: Glucose 161 mg/dL (83-110)
[2021-11-20 19:21] LABS: Anion Gap 16 mmol/L (10-20); Carbon Dioxide 23 mmol/L (23-31)
[2021-11-20 19:23] LABS: Calc. Creatinine Clearance 35 mL/min (70-130); Phosphorus 4.2 mg/dL (2.3-4.7)
[2021-11-20 19:24] LABS: BUN (Urea Nitrogen) 47 mg/dL (8.4-25.7); BUN/Creatinine Ratio 28.83
[2021-11-20] MEDS ORDERED: Non-Formulary Item 1 EACH (Iron [Iron] 18 MG Tablet) PO SCH (21:00)
[2021-11-20] MEDS: Tamsulosin HCl 0.4 MG CAP PO SCH (21:12)
[2021-11-20] MEDS: Clopidogrel Bisulfate 75 MG TAB PO SCH (21:12)
[2021-11-20] MEDS: traZODone HCl 50 MG TAB PO SCH (21:13)
[2021-11-21 04:43] LABS: #Lymphocytes 0.7 thou/uL (1.20-3.40); #Monocytes 0.5 thou/uL (0.11-0.59); %Basophils 0.2 % (0.0-1.0); %Eosinophils 0.4 % (0.0-10.0); %Lymphocytes 13.6 % (21.0-51.0); %Monocytes 9.8 % (0.0-10.0); %Neutrophils 76.1 % (42.0-75.0); Hemoglobin 12.8 g/dL (14.0-18.0); Mean Corpuscular HGB CONC 31.8 g/dL (32.0-36.0); Mean Corpuscular Volume 94.2 fL (78.0-98.0); Mean Platelet Volume 8.2 fL (7.4-10.4); Platelet Count 177 thou/uL (130-400); RBC Distribution Width 17.5 % (11.5-14.5); Red Blood Cell (RBC) Count 4.28 mill/uL (4.70-6.10); White Blood Cell (WBC) Count 5.3 thou/uL (4.8-10.8)
[2021-11-21 04:54] LABS: Prothrombin Time 39.9 sec (12.0-14.7)
[2021-11-21 05:03] LABS: ALT (SGPT) 22 U/L (8-55); AST (SGOT) 23 U/L (5-34); Albumin 3.4 g/dL (3.4-4.8); Alkaline Phosphatase 62 U/L (40-110); Anion Gap 14 mmol/L (10-20); BUN (Urea Nitrogen) 46 mg/dL (8.4-25.7); Bilirubin, Total 0.9 mg/dL (0.2-1.2); CK (CPK) 129 U/L (30-200); Calc. Creatinine Clearance 41 mL/min (70-130); Calcium 9.1 mg/dL (7.8-10.44); Carbon Dioxide 22 mmol/L (23-31); Chloride 107 mmol/L (98-107); Globulin 2.6 g/dL (2.4-3.5); Glucose 145 mg/dL (83-110); Potassium 4.1 mmol/L (3.5-5.1); Sodium 139 mmol/L (136-145)
[2021-11-21 05:29] LABS: Thyroid Stimulating Hormone 6.8044 uIU/mL (0.35-4.94)
[2021-11-21] MEDS: Multivit, Therapeutic 1 TAB PO SCH (08:51)
[2021-11-21] MEDS: Sodium Bicarbonate Tab 325 MG TAB PO SCH ×2 (08:51→20:29)
[2021-11-21] MEDS: Cholecalciferol 1,000 UNITS (25 MCG) TAB PO SCH (08:51)
[2021-11-21] MEDS: Timolol 0.25% Ophth Soln 5 ml Bottle EA EYE SCH (08:52)
[2021-11-21] MEDS ORDERED: Methimazole 5 MG TAB PO SCH (09:00)
[2021-11-21] MEDS ORDERED: Polyethylene Glycol 3350 17 GM Packet PO SCH (10:30)
[2021-11-21] MEDS: cefTRIAXone\\ROCEPHIN 1 GM in Sodium Chloride 0.9% 100 ML IVPB SCH (16:10)
[2021-11-21] MEDS: Tamsulosin HCl 0.4 MG CAP PO SCH (20:28)
[2021-11-21] MEDS: traZODone HCl 50 MG TAB PO SCH (20:28)
[2021-11-21] MEDS: Clopidogrel Bisulfate 75 MG TAB PO SCH (20:28)
[2021-11-22] MEDS ORDERED: hydrALAZINE 20 MG/ML VIAL SLOW IVP PRN (03:45)
[2021-11-22 05:45] LABS: #Eosinphils 0.1 thou/uL (0.0-0.7); #Lymphocytes 0.7 thou/uL (1.20-3.40); #Monocytes 0.5 thou/uL (0.11-0.59); #Neutrophils 3.7 thou/uL (1.40-6.50); %Basophils 0.7 % (0.0-1.0); %Eosinophils 1.9 % (0.0-10.0); %Lymphocytes 13.3 % (21.0-51.0); %Monocytes 10.1 % (0.0-10.0); Hemoglobin 12.1 g/dL (14.0-18.0); Mean Corpuscular HGB CONC 31.6 g/dL (32.0-36.0); Mean Corpuscular Hemoglobin 29.7 pg (27.0-31.0); Mean Corpuscular Volume 94.1 fL (78.0-98.0); Mean Platelet Volume 8.7 fL (7.4-10.4); Platelet Count 167 thou/uL (130-400); RBC Distribution Width 17.3 % (11.5-14.5); Red Blood Cell (RBC) Count 4.08 mill/uL (4.70-6.10); White Blood Cell (WBC) Count 4.9 thou/uL (4.8-10.8)
[2021-11-22 05:52] LABS: Prothrombin Time 32.1 sec (12.0-14.7)
[2021-11-22 06:10] LABS: ALT (SGPT) 18 U/L (8-55); AST (SGOT) 21 U/L (5-34); Alkaline Phosphatase 59 U/L (40-110); Anion Gap 14 mmol/L (10-20); BUN (Urea Nitrogen) 40 mg/dL (8.4-25.7); Bilirubin, Total 0.7 mg/dL (0.2-1.2); Calc. Creatinine Clearance 49 mL/min (70-130); Calcium 8.9 mg/dL (7.8-10.44); Carbon Dioxide 21 mmol/L (23-31); Chloride 107 mmol/L (98-107); Globulin 2.6 g/dL (2.4-3.5); Glucose 139 mg/dL (83-110); Protein, Total 5.6 g/dL (5.8-8.1); Sodium 138 mmol/L (136-145)
[2021-11-22 08:48] VITALS: BMI 23.6
[2021-11-22] MEDS ORDERED: Methimazole 5 MG TAB PO SCH ×2 (09:00)
[2021-11-22] MEDS: Sodium Bicarbonate Tab 325 MG TAB PO SCH ×2 (09:37→20:28)
[2021-11-22] MEDS: Sacubitril 49 MG/Valsartan 51 MG TABLET PO SCH ×2 (09:37→20:27)
[2021-11-22] MEDS: Cholecalciferol 1,000 UNITS (25 MCG) TAB PO SCH (09:37)
[2021-11-22] MEDS: Multivit, Therapeutic 1 TAB PO SCH (09:37)
[2021-11-22] MEDS: Timolol 0.25% Ophth Soln 5 ml Bottle EA EYE SCH (12:40)
[2021-11-22] MEDS: Polyethylene Glycol 3350 17 GM Packet PO SCH (13:03)
[2021-11-22] MEDS: Warfarin Sodium 2 MG TAB PO SCH ×4 (19:09→19:33)
[2021-11-22] MEDS: cefTRIAXone\\ROCEPHIN 1 GM in Sodium Chloride 0.9% 100 ML IVPB SCH (19:36)
[2021-11-22] MEDS: Tamsulosin HCl 0.4 MG CAP PO SCH (20:27)
[2021-11-22] MEDS: Clopidogrel Bisulfate 75 MG TAB PO SCH (20:27)
[2021-11-22] MEDS: traZODone HCl 50 MG TAB PO SCH (20:28)
[2021-11-23 05:03] LABS: #Eosinphils 0.1 thou/uL (0.0-0.7); #Lymphocytes 0.7 thou/uL (1.20-3.40); #Monocytes 0.5 thou/uL (0.11-0.59); #Neutrophils 3.5 thou/uL (1.40-6.50); %Basophils 0.1 % (0.0-1.0); %Eosinophils 2.3 % (0.0-10.0); %Lymphocytes 14.5 % (21.0-51.0); %Monocytes 10.7 % (0.0-10.0); %Neutrophils 72.4 % (42.0-75.0); Mean Corpuscular HGB CONC 31.7 g/dL (32.0-36.0); Mean Corpuscular Hemoglobin 30.2 pg (27.0-31.0); Mean Corpuscular Volume 95.1 fL (78.0-98.0); Mean Platelet Volume 8.4 fL (7.4-10.4); Platelet Count 174 thou/uL (130-400); RBC Distribution Width 17.2 % (11.5-14.5); Red Blood Cell (RBC) Count 4.32 mill/uL (4.70-6.10); White Blood Cell (WBC) Count 4.9 thou/uL (4.8-10.8)
[2021-11-23 05:15] LABS: INR-International Normal Ratio 2.3; Prothrombin Time 25.9 sec (12.0-14.7)
[2021-11-23 05:30] LABS: Anion Gap 13 mmol/L (10-20); BUN (Urea Nitrogen) 36 mg/dL (8.4-25.7); Calc. Creatinine Clearance 52 mL/min (70-130); Calcium 9.1 mg/dL (7.8-10.44); Carbon Dioxide 25 mmol/L (23-31); Chloride 105 mmol/L (98-107); Glucose 138 mg/dL (83-110); Sodium 139 mmol/L (136-145)
[2021-11-23] MEDS ORDERED: Spironolactone 25 MG TAB PO SCH (09:00)
[2021-11-23] MEDS ORDERED: Torsemide 10 MG TAB PO SCH (09:00)
[2021-11-23] MEDS: Multivit, Therapeutic 1 TAB PO SCH (10:13)
[2021-11-23] MEDS: Cholecalciferol 1,000 UNITS (25 MCG) TAB PO SCH (10:13)
[2021-11-23] MEDS: Sodium Bicarbonate Tab 325 MG TAB PO SCH (10:14)
[2021-11-23] MEDS: Sacubitril 49 MG/Valsartan 51 MG TABLET PO SCH (10:14)
[2021-11-23] MEDS: Timolol 0.25% Ophth Soln 5 ml Bottle EA EYE SCH (11:47)
[2021-11-23] MEDS: Polyethylene Glycol 3350 17 GM Packet PO SCH (12:14)
[2021-11-23 17:03] VITALS: BP 155/87; TEMP 98
[2021-11-23] MEDS: Warfarin Sodium 2 MG TAB PO SCH (18:30)
[2021-11-23] MEDS: cefTRIAXone\\ROCEPHIN 1 GM in Sodium Chloride 0.9% 100 ML IVPB SCH (18:32)
== END 2021-11-23 19:15 | DRG 280 ==
LOC: ERS 13:23 → 2NO 17:36
PROVIDERS: ADMIT Internal Medicine; ATTEND Internal Medicine
DX: I13.0 Hypertensive heart and chronic kidney disease with heart failure and stage 1 through stage 4 chronic kidney disease, or unspecified chronic kidney disease (principal); I21.A1 Myocardial infarction type 2; I50.43 Acute on chronic combined systolic (congestive) and diastolic (congestive) heart failure; N39.0 Urinary tract infection, site not specified; N17.9 Acute kidney failure, unspecified; M62.82 Rhabdomyolysis; E87.2 Acidosis; Z23 Encounter for immunization; Z20.822 Contact with and (suspected) exposure to COVID-19; E11.51 Type 2 diabetes mellitus with diabetic peripheral angiopathy without gangrene; E03.9 Hypothyroidism, unspecified; N32.81 Overactive bladder; N18.30 Chronic kidney disease, stage 3 unspecified; I25.5 Ischemic cardiomyopathy; E11.22 Type 2 diabetes mellitus with diabetic chronic kidney disease; R29.6 Repeated falls; I48.0 Paroxysmal atrial fibrillation; F41.9 Anxiety disorder, unspecified; N40.1 Benign prostatic hyperplasia with lower urinary tract symptoms; R33.8 Other retention of urine; Z79.899 Other long term (current) drug therapy; Z95.810 Presence of automatic (implantable) cardiac defibrillator; Z79.01 Long term (current) use of anticoagulants
CPT/HCPCS: 36415; 36416; 70450; 71260; 72125; 74177; 76705; 76870; 80048; 80053; 81003; 81015; 82550; 82553; 82570; 82607; 82746; 83735; 83880; 84156; 84300; 84443; 84484; 84540; 85025; 85610; 85730; 87086; 93005; 93976; 96365; J0696; J1650; J3490; J7120; Q9967; U0003; U0005

== ENCOUNTER 2021-12-11 22:00 | Emergency (ER) | payer MEDICARE, BC ==
[2021-12-11 23:00] LABS: ALT (SGPT) 22 U/L (8-55); AST (SGOT) 27 U/L (5-34); Albumin 3.4 g/dL (3.4-4.8); Alkaline Phosphatase 83 U/L (40-110); Anion Gap 16 mmol/L (10-20); BUN (Urea Nitrogen) 60 mg/dL (8.4-25.7); Bilirubin, Total 0.9 mg/dL (0.2-1.2); Calc. Creatinine Clearance 0 mL/min (70-130); Calcium 9.3 mg/dL (7.8-10.44); Carbon Dioxide 25 mmol/L (23-31); Chloride 107 mmol/L (98-107); Estimated GFR 39; Globulin 2.7 g/dL (2.4-3.5); Glucose 177 mg/dL (83-110); Potassium 4.2 mmol/L (3.5-5.1); Protein, Total 6.1 g/dL (5.8-8.1); Sodium 144 mmol/L (136-145)
[2021-12-11 23:08] LABS: #Eosinphils 0.1 thou/uL (0.0-0.7); #Lymphocytes 0.6 thou/uL (1.20-3.40); #Monocytes 0.5 thou/uL (0.11-0.59); #Neutrophils 5.8 thou/uL (1.40-6.50); %Basophils 0.1 % (0.0-1.0); %Eosinophils 1.1 % (0.0-10.0); %Monocytes 7.3 % (0.0-10.0); %Neutrophils 82.5 % (42.0-75.0); Hemoglobin 13.7 g/dL (14.0-18.0); Mean Corpuscular HGB CONC 30.1 g/dL (32.0-36.0); Mean Corpuscular Hemoglobin 29.3 pg (27.0-31.0); Mean Corpuscular Volume 97.4 fL (78.0-98.0); Mean Platelet Volume 10.4 fL (7.4-10.4); Platelet Count 117 thou/uL (130-400); Platelet Morphology Comment Appears Decreased; RBC Distribution Width 18.7 % (11.5-14.5); Red Blood Cell (RBC) Count 4.66 mill/uL (4.70-6.10); White Blood Cell (WBC) Count 7.1 thou/uL (4.8-10.8)
[2021-12-11 23:56] LABS: Bilirubin Negative (Negative); Blood, Urine Negative (Negative); Glucose, Urine (Dipstick) Negative (Negative); Ketone, Urine Negative (Negative); Leukocyte Trace (Negative); Nitrite Negative (Negative); Protein, Urine (Dipstick) Trace mg/dL (Neg-Trace); Urobilinogen 0.2 mg/dL (Less than 2); pH, Urine 5.5 (5.0-9.0)
[2021-12-11 23:58] LABS: Clarity Clear (Clear)
[2021-12-12 01:22] LABS: Bacteria/HPF Rare-Few HPF (None Seen); RBC/HPF 0-3 HPF (0-3)
== END 2021-12-12 02:05 | disposition home or self-care (01) ==
LOC: ERS 22:00
DX: S09.90XA Unspecified injury of head, initial encounter (principal); I48.91 Unspecified atrial fibrillation; E11.9 Type 2 diabetes mellitus without complications; E03.9 Hypothyroidism, unspecified; I11.0 Hypertensive heart disease with heart failure; I50.9 Heart failure, unspecified; Z87.891 Personal history of nicotine dependence; Z79.01 Long term (current) use of anticoagulants; W18.30XA Fall on same level, unspecified, initial encounter
CPT/HCPCS: 36415; 51701; 70450; 72125; 72131; 80053; 81003; 81015; 85025; 93005; 94760